=== PATIENT | female | born 1935 | race Caucasian/White ===

== ENCOUNTER 2022-12-02 08:02 | Outpatient (OUT) | payer MEDICARE, OTHER, SELFPAY ==
[2022-12-02 08:19] LABS: Basophils Percent Auto 0.4 % (0.2-2.0); Eosinophils Absolute Auto 0.1 10^3/uL (0.0-0.7); Eosinophils Percent Auto 1.6 % (0.9-7.0); Hematocrit 48.8 % (36.0-48.0); Hemoglobin 16.2 g/dL (12.0-16.0); Immature Granulocytes Abs Auto 0.03 10^3/uL (0.00-0.03); Immature Granulocytes Pct Auto 0.4 % (0.0-0.5); Lymphocytes Absolute Auto 2.5 10^3/uL (1.2-3.8); Lymphocytes Percent Auto 35.3 % (20.5-60.0); Mean Corpuscular HGB Conc 33.2 g/dL (29.9-35.2); Mean Corpuscular Hemoglobin 29.1 pg (26.7-34.0); Mean Corpuscular Volume 87.8 fL (81.0-99.0); Mean Platelet Volume 9.5 fL (9.5-13.5); Monocytes Absolute Auto 0.6 10^3/uL (0.3-0.8); Monocytes Percent Auto 9.1 % (1.7-12.0); Neutrophils Absolute Auto 3.7 10^3/uL (1.4-6.5); Neutrophils Percent Auto 53.2 % (43.0-75.0); Platelet Count 226 10^3/uL (150-450); Red Blood Count 5.56 10^6/uL (4.20-5.40); Red Cell Distribution Width 13.6 % (11.0-15.0); White Blood Count 6.9 10^3/uL (4.0-11.0)
[2022-12-02 09:00] LABS: Alanine Aminotransferase 23 U/L (14-59); Alkaline Phosphatase 105 U/L (46-116); Anion Gap 13.2; Aspartate Amino Transferase 22 U/L (15-37); BUN Creatinine Ratio 25.3; Bilirubin Total 0.6 mg/dL (0.2-1.0); Calcium 9.1 mg/dL (8.5-10.1); Carbon Dioxide 26.9 mmol/L (21.0-32.0); Chloride 101 mmol/L (98-107); Cholesterol 243 mg/dL (<=200); Estimated GFR (African America >60 (>=60); Estimated GFR (Non-African Ame >60 (>=60); Globulin 3.9 g/dL; Glucose 108 mg/dL (74-106); HDL Cholesterol 81 mg/dL (40-60); Potassium 4.1 mmol/L (3.5-5.1); Sodium 137 mmol/L (136-145); Thyroid Stimulating Hormone 1.869 uIU/mL (0.358-3.740); Total Protein 7.9 g/dL (6.4-8.2); Triglycerides 114 mg/dL (<=150); VLDL CHOLESTEROL 22.8 mg/dL
[2022-12-02 09:13] LABS: Free T4 1.16 ng/dL (0.76-1.46)
== END 2022-12-02 08:03 | disposition home or self-care (01) ==
LOC: LAB 08:03
PROVIDERS: PCP Family Medicine; Visit Provider Family Medicine
DX: I10 Essential (primary) hypertension (principal); E03.8 Other specified hypothyroidism
CPT/HCPCS: 36415; 80053; 80061; 84439; 84443; 85025

== ENCOUNTER 2023-12-11 09:59 | Outpatient (OUT) | payer MEDICARE, OTHER, SELFPAY ==
[2023-12-11 10:16] LABS: Basophils Percent Auto 0.6 % (0.2-2.0); Eosinophils Absolute Auto 0.1 10^3/uL (0.0-0.7); Eosinophils Percent Auto 1.5 % (0.9-7.0); Hematocrit 49.5 % (36.0-48.0); Immature Granulocytes Abs Auto 0.02 10^3/uL (0.00-0.03); Immature Granulocytes Pct Auto 0.3 % (0.0-0.5); Lymphocytes Absolute Auto 2.5 10^3/uL (1.2-3.8); Lymphocytes Percent Auto 34.4 % (20.5-60.0); Mean Corpuscular HGB Conc 32.3 g/dL (29.9-35.2); Mean Corpuscular Hemoglobin 29.3 pg (26.7-34.0); Mean Corpuscular Volume 90.5 fL (81.0-99.0); Mean Platelet Volume 9.6 fL (9.5-13.5); Monocytes Absolute Auto 0.6 10^3/uL (0.3-0.8); Monocytes Percent Auto 8.6 % (1.7-12.0); Neutrophils Absolute Auto 3.9 10^3/uL (1.4-6.5); Neutrophils Percent Auto 54.6 % (43.0-75.0); Platelet Count 234 10^3/uL (150-450); Red Blood Count 5.47 10^6/uL (4.20-5.40); Red Cell Distribution Width 13.6 % (11.0-15.0); White Blood Count 7.2 10^3/uL (4.0-11.0)
[2023-12-11 11:44] LABS: Free T4 1.23 ng/dL (0.76-1.46)
[2023-12-11 11:56] LABS: Alanine Aminotransferase 26 U/L (14-59); Albumin Globulin Ratio 1.1; Alkaline Phosphatase 103 U/L (46-116); Anion Gap 13.1; Aspartate Amino Transferase 23 U/L (15-37); BUN Creatinine Ratio 17.3; Bilirubin Total 0.9 mg/dL (0.2-1.0); Calcium 9.2 mg/dL (8.5-10.1); Carbon Dioxide 28.1 mmol/L (21.0-32.0); Chloride 102 mmol/L (98-107); Chol HDL Ratio 2.6; Cholesterol 251 mg/dL (<=200); Estimated GFR (African America >60 (>=60); Estimated GFR (Non-African Ame >60 (>=60); Globulin 3.8 g/dL; Glucose 104 mg/dL (74-106); HDL Cholesterol 96 mg/dL (40-60); Potassium 4.2 mmol/L (3.5-5.1); Sodium 139 mmol/L (136-145); Thyroid Stimulating Hormone 1.001 uIU/mL (0.358-3.740); Total Protein 7.8 g/dL (6.4-8.2); Triglycerides 91 mg/dL (<=150); VLDL CHOLESTEROL 18.2 mg/dL
[2023-12-15 16:17] LABS: Microalbumin Urine Random 1.5 mg/dL (<=30.0)
== END 2023-12-11 10:00 | disposition home or self-care (01) ==
LOC: LAB 10:01
PROVIDERS: PCP Family Medicine; Visit Provider Family Medicine
DX: E03.8 Other specified hypothyroidism (principal); I10 Essential (primary) hypertension
CPT/HCPCS: 36415; 80053; 80061; 82043; 84439; 84443; 85025

== ENCOUNTER 2024-12-23 09:30 | Outpatient (OUT) | payer MEDICARE, OTHER, SELFPAY ==
--- OUTSIDE RECORDS SUMMARY | 2024-12-23 09:46 | XMS_ITS | Patient Health Record ---
Author Organization [facility] Address [address] [place] [address] Care Team Providers Care Manager Audio Name Role Phone Justin Mendoza Unavailable [phone] Dee Dee Griffith M.D. Unavailable Unavailable Allergies No Known Allergies Reason For Referral No Information Medications Medication SIG (Take, Route, Fr equency, Duration) Notes Start Date End Date Status Losartan/Potassium A ctive levothyroxine Active Upneeq Active [place]oothe XP Active Tumeric Active [place] XL Active Social History Tobacco Use: Social History Observation Description Date Details (start date - stop date) Never Smoker NA - NA Smoking History Question Answer Notes Smoking Status NonSmoker Problems Problem Type SNOMED Code ICD Code Onset Dates Problem Status W/U Status Risk Notes Problem [id number] Finger mass, right (R22.31) Active confirmed Problem [id number] 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 Plan Of Treatment No Information Insurance Providers Payer Name Payer Address Payer Phone Subscriber Number Group Number Insured Name Patient Relationship to Insured Coverage Start Date Coverage End [place] [place] [phone] [id number] DAX ACRE Self - patient is the insured [place] [employer] [place] [address] [facility], [place] [id number] [phone] [id number] Self - patient is the insured Medical (General) History Medical History History ICD Code Hypothyroidism Yes High Blood Pressure: Yes Surgical History Surgery Date(Month/Year) Colonoscopy [phone] Carpal tunnel 2003 Ganglion cyst 2001 Hysterectomy 1982
--- OUTSIDE RECORDS SUMMARY | 2024-12-23 09:46 | XMS_ITS | Clinical Summary ---
Author Organization [facility] Address [address] [place] [address] Care Team Providers Care Cable Installer Repairer Helper Name Role Phone Dee Dee Griffith MD Primary Care Provider [phone] Allergies Active Allergy Reactions Criticality Noted Date Comments Salicylates GI Upset 04/20/2014 Medications Levothyroxine 50 mcg cap Take 50 mcg by mouth once daily. Active iv contrast (will be provided with radiology test) CT Chest W -Inject, intravenously, once for 1 dose.No IV access, insert saline lock prior to the beginning of sedation, infusion, injection of imaging exam. Discontinue saline lock post exam. If Pt. has a central line or IVAD, may access for administration according to line specific nursing protocol. Once exam is complete flush line and de-access according to line specific nursing protocol in the CT contrast administration guidelines link. 1 Each 0 Active erythromycin (ROMYCIN) 5 mg/gram (0.5 %) ophthalmic ointment Use in both eyes daily at bedtime. 3 Active losartan (COZAAR) 25 mg tablet Take 1 tablet by mouth every afternoon. 3 Active Active Problems Problem Noted Date Diagnosed Date Splenic artery aneurysm 04/20/2014 Family History Medical History Relation Comments Heart Brother 1 Lipids Brother 2 Stroke Father Heart Mother Heart Son Relation Status Comments Brother 1 Brother 2 Father Mother Son Social History Tobacco Use Types Packs/Day Years Used Date Smoking Tobacco: Never Smokeless Tobacco: Never Tobacco Cessation:Counseling Given: Not Answered Alcohol Use Standard Drinks/Week Comments No 0 (1 standard drink = 0.6 oz pur e alcohol) Area Deprivation Index Answer Date Wilmar rded National Score (1-100), ignacioe r number is lower risk 86 02/06/2023 State Score (1-10), lower number is lower risk 8 02/06/2023 Data from: https://www.neighborhoodatlas.medicine.[facility] . Last address used for calculation [address] 02/06/2023 Comments No Sex and Gender Information Value Date Recorded Sex Assigned at Not on file Legal Sex Female 11:39 AM EST Gender Identity Female 01/30/2023 12:28 PM EDT Sexual Orientation Not on file Occupation Industry Job Start Date Job End Date Not on file Not on file Not on file Not on file Last Filed Vital Signs Vital Sign Reading Time Taken Comments Blood Pressure 145/73 02/06/2023 11:08 AM EDT Pulse 72 02/06/2023 11:08 AM EDT Temperature 36.3 C (97.3 F) 02/06/2023 11:08 AM EDT Respiratory Rate 16 02/06/2023 11:08 AM EDT Oxygen Saturation 99% 02/06/2023 11:08 AM EDT Inhaled Oxygen Concentration - - Weight 63.7 kg (140 lb 8 oz) 02/06/2023 11:08 AM EDT Height 153.7 cm (5' 0.5 ) 02/06/2023 11:08 AM ED T Body Mass Index 26.99 02/06/2023 11:08 AM EDT Plan of Treatment Health Maintenance Due Date Last Done Comments Anxiety Screening 11/23/1953 Depression Screening 11/23/1955 DTaP,Tdap,Td Vaccine (1 - Tdap) 1956 Diabetes Screening 1982 Pneumococcal Vaccine: 50+ (1 of 1 - PCV) 11/23/1987 Shingrix Vaccine (1 of 2) 11/23/1987 Medicare Annual Wellness Visit 11/01/2002 Bone Density Screening 2002 RSV Vaccine (1 - 1-dose 75+ series) 2012 Advance Directive Discussion 05/04/2024 Influenza Vaccine (#1) [address] [place] [address] [employer] MEDICARE Care Teams Cable Installer Repairer Helper Relationship Specialty Start Date End Date Dee Dee Griffith MD [address] [place] [address] [place] [address] PCP - General Family Medicine 04/05/14
--- OUTSIDE RECORDS SUMMARY | 2024-12-23 09:46 | XMS_ITS | Clinical Summary ---
Author Organization [facility] Address [address] [place] [address] Care Team Providers Care Digital Printer Operator Name Role Phone Unavailable Primary Care Provider Unavailabl e Allergies Active Allergy Reactions Criticality Noted Date Comments Aspirin 12/25/2023 Medications levothyroxine (Tirosint) 50 MCG capsule Take 50 mcg by mouth in the morning. Active losartan (Cozaar) 25 MG tablet Take 25 mg by mouth Daily Active metroNIDAZOLE (Metrocream) 0.75 % creamIndications :Other rosacea Apply thin layer to face, once daily, 30 day supply 45 g 6 12/25/2023 Active Active Problems No known active problems Social History Tobacco Use Types Packs/Day Years Used Date Smoking Tobacco: Never Smokeless Tobacco: Never Tobacco Cessation:Counseling Given: Not Answered Comments Unknown Sex and Gender Information Value Date Recorded Sex Assigned at Not on file Legal Sex Female 11:16 PM EDT Gender Identity Not on file Sexual Orientation Not on file Plan of Treatment Upcoming Encounters Date Type Department Care Team (Late st Contact Info) Description 12/26/2024 10:30 AM EDT Office Visit [facility] [address] [place] [address] Kelly Melchor PA [address] [place] [address] Insurance MEDICARE [facility] [place] [address]
--- OUTSIDE RECORDS SUMMARY | 2024-12-23 09:46 | XMS_ITS | Clinical Summary ---
Author Organization [facility] Address [address] [address] Care Team Providers Care Carton Gluing Machine Operator Name Role Phone Unavailable Primary Care Provider Unavailabl e Social History Tobacco Use Types Packs/Day Years Used Date Smoking Tobacco: Never Assessed Comments Unknown Sex and Gender Information Value Date Recorded Sex Assigned at Not on file Legal Sex Female 10:50 PM EDT Gender Identity Not on file Sexual Orientation Not on file Plan of Treatment Not on file
--- OUTSIDE RECORDS SUMMARY | 2024-12-23 09:49 | XMS_ITS | CCD ---
Author Organization [facility] Care Team Providers Care Mechanical Engineering Teacher Name Role Phone JO, DR DEE DEE Blood Primary Care Unavailable MYRIAM CARBALLO Consulting Unavailable MARAH, DR ADY Murry Admitting Unavailable LAWRENCE, DR ADY Murry Attending Unavailable JO, DR DEE DEE Blood Admitting Unavailable OSORIO, DR DEE DEE Blood Attending Unavailable JO, DR DEE DEE Blood Consulting Unavailable JO, DR DEE DEE Blood Primary Care Unavailable MICHELLE, DR JUSTIN Momin Consulting Unavailable JO, DR DEE DEE Blood Admitting Unavailable JO, DR DEE DEE Blood Attending Unavailable JO, DR DEE DEE Blood Primary Care Unavailable JO, DR DEE DEE Blood Consulting Unavailable MARAH, DR ADY Murry Admitting Unavailable MARAH, DR ADY Murry Attending Unavailable JO, DR DEE DEE Blood Primary Care Unavailable MARAH, DR ADY Murry Consulting Unavailable MARAH, DR ADY Murry Consulting Unavailable MARAH, DR ADY Murry Admitting Unavailable MARAH, DR ADY Murry Attending Unavailable JO, DR DEE DEE Blood Referring Unavailable OSORIO, DR DEE DEE Blood Primary Care Unavailable MARAH, DR ADY Murry Admitting Unavailable JO, DR DEE DEE Blood Primary Care Unavailable MYRIAM CARBALLO Consulting Unavailable MARAH, DR ADY Murry Attending Unavailable Dee Dee Osorio Unavailable Dee Dee Osorio MD Primary Care Provider GENO GRIFFITH Attending Unavailable SONIA DUFF Referring Unavailable DEE DEE OSORIO Primary Care Unavailable DEE DEE OSORIO Primary Care Unavailable Trae Ruiz MD Attending UnavailTrae Carolina MD Attending Unavailab zacarias Unavailable Primary Care Provider UnavailKELLY Larsen Attending Unavailable KELLY BONILLA Attending Unavailable KELLY BONILLA Attending Unavailable Dee Dee Osorio MD Primary Care Provider [phone] Dee Dee Osorio MD Attending Provider Allergies Allergy Classification Reported Allergen(s) Allergy Type Date of Onset Reaction(s) Facility (1 source) Aspirin Drug Allergy 02-11-1990 [facility] Repository (2 sources) Aspirin Drug Allergy Unknown [employer] Other (5 sources) Salicylate product; Translations: [SALICYLATES] Drug Allergy 04-20-2014 GI Upset [facility] (8 sources) Aluminum aspirin Drug Allergy 12-25-2023 [facility] Medications Current Medications Medication Drug Class(es) Dates Sig (Normalized) Sig (Original) levothyroxine sodium 0.05 mg oral tablet (17 sources) l-Thyroxine Start: 12-21-2023 take 1 tablet by mouth once daily Levothyroxine 50 mcg tablet Active 0 .ROUTE .COMPLEX December 21, 2023 8:28am TAKE 1 TABLET BY MOUTH EVERY DAY Complies with drug therapy Start: 12-10-2023 End: 12-21-2023 take 1 tablet by mouth once daily Levothyroxine 50 mcg tablet Discontinued 1 TAB PO Daily December 10, 2023 12:00am December 21, 2023 8:28am FreeTextSig: TAKE 1 TABLET BY MOUTH EVERY DAY; Note: Source Status: Start; Refills: 3; Qty: 90 Tablet; Provider: Jo Funez ( ) Start: 12-10-2023 take 1 tablet by cih th once daily Levothyroxine Active 1 TAB PO Daily December 10, 2023 12:00am FreeTextSig: TAKE 1 TABLET BY MOUTH EVERY DAY; Note: Source Status: Start; Refills: 3; Qty: 90 Tablet; Provider: Jo Funez ( ) take 1 capsule by mo uth in the morning levothyroxine (Tirosint) 50 MCG capsule Take 50 mcg by mouth in the morning. Active take 1 tablet by chi th once daily Levothyroxine Sodium 50 MCG TAKE 1 TABLET BY MOUTH EVERY DAY for 90 Active Comment on above: Take 50 mcg by mouth once daily. losartan potassium 25 mg oral tablet (14 sources) Angiotensin 2 Receptor Donald Start: 05-02-2024 take 1 tablet by mouth once daily Losartan 25 mg tablet Active 0 .ROUTE .COMPLEX May 02, 2024 5:43pm TAKE 1 TABLET BY MOUTH EVERY DAY Complies with drug therapy Start: 2022 End: 05-02-2024 take 1 tablet by mouth once daily Losartan 25 mg tablet Discontinued 1 TAB PO Daily December 10, 2023 12:00am May 02, 2024 5:43pm FreeTextSig: TAKE 1 TABLET BY MOUTH EVERY DAY; Note: Source Status: Start; Refills: 3; Qty: 90 Tablet; Provider: Jo Funez ( ) Comment on above: Take 1 tablet by chi th every afternoon. metroNIDAZOLE 7.5 mg/ml topical cream (8 sources) Nitroimidazole Antimicrobial Start: 12-25-2023 metroNIDAZOLE (Metrocream) 0.75 % cream Indications: Other rosacea Apply thin layer to face, once daily, 30 day supply 45 g 6 12/25/2023 Active Completed/Discontinued Medications Medication Drug Class(es) Dates Sig (Normalized) Sig (Original) erythromycin 0.005 mg/mg ophthalmic ointment (1 source) Macrolide, Macrolide Antimicrobial Start: 12-30-2022 erythromycin (ROMYCIN) 5 mg/gram (0.5 %) ophthalmic ointment Use in both eyes daily at bedtime. 0 12/30/2022 Active Comment on above: Use in both eyes nestor ly at bedtime. iv contrast (will be provided with radiology test) (4 sources) Start: 01-04-2020 iv contrast (will be provided with radiology [...] contrast administration guidelines link. 1 Each 0 01/04/2020 Active Comment on above: CT Chest W -Inject, intravenously, once for [...] in the CT contrast administration guidelines link. Problems Active Problems Problem Classification Problem Date Documented Date Episodic/Chronic Aortic; peripheral; and visceral artery aneurysms (9 sources) Aneurysm of splenic artery; Translations: [Aneurysm of other specified arteries] Onset: 04-20-2014 12-24-2022 Chronic Essential hypertension (8 sources) Essential (primary) hypertension; Translations: [Essential hypertension] Onset: 11-26-2021 Chronic Neoplasms of unspecified nature or uncertain behavior (2 sources) Neoplastic disease; Translations: [Neoplasm of unspecified behavior of bone, soft tissue, and skin] 02-15-2024 Episodic Other circulatory disease (1 source) Vascular disorder; Translations: [Unspecified disorder of circulatory system] 12-24-2022 Episodic Other connective tissue disease (4 sources) Trochanteric bursitis, right hip; Translations: [TROCHANTERIC BURSITIS RIGHT HIP] Onset: 01-02-2022 Episodic Other connective tissue disease (1 source) Ganglion, right hand Episodic Other inflammatory condition of skin (2 sources) Rosacea; Translations: [Other rosacea] 12-25-2023 Chronic Other non-epithelial cancer of skin (2 sources) Intraepidermal squamous carcinoma of face; Translations: [Carcinoma in situ of skin of unspecified part of face] 04-19-2024 Episodic Other non-traumatic joint disorders (1 source) Pain in right hip; Translations: [PAIN IN RIGHT HIP] Onset: 01-10-2022 Episodic Other skin disorders (2 sources) Inflamed seborrheic keratosis; Translations: [Inflamed seborrheic keratosis] 04-19-2024 Episodic Spondylosis; intervertebral disc disorders; other back problems (1 source) Other spondylosis with radiculopathy, lumbar region; Translations: [OTH SPONDYLS RADICULOPATHY LUMB RGN] Onset: 04-08-2022 Chronic Spondylosis; intervertebral disc disorders; other back problems (13 sources) Intervertebral disc disorders with radiculopathy, lumbar region; Translations: [Radiculopathy, lumbar region] Onset: 12-17-2021 Episodic Thyroid disorders (8 sources) Hypothyroidism, unspecified; Translations: [Hypothyroidism] Onset: 11-26-2021 Chronic Unclassified (3 sources) LOW BACK PAIN, UNSPECIFIED; Translations: [LOW BACK PAIN, UNSPECIFIED] Onset: 12-04-2021 Past or Other Problems Problem Classification Problem Date Documented Da te Episodic/Chronic Other and unspecified benign neoplasm (2 sources) Melanocytic nevus of trunk; Translations: [Melanocytic nevi of trunk] 12-25-2023 Episodic Other and unspecified benign neoplasm (2 sources) Senile angioma; Translations: [Hemangioma of skin and subcutaneous tissue] 12-25-2023 Episodic Other connective tissue disease (4 sources) Other muscle spasm; Translations: [OTHER MUSCLE SPASM] Onset: 12-03-2021 Episodic Other connective tissue disease (1 source) Sarcopenia; Translations: [SARCOPENIA] Onset: 12-07-2021 Episodic Other non-traumatic joint disorders (1 source) Pain in left hip; Translations: [PAIN IN LEFT HIP] Onset: 12-04-2021 Episodic Other skin disorders (2 sources) Seborrheic keratosis; Translations: [Other seborrheic keratosis] 12-25-2023 Episodic Other skin disorders (2 sources) Actinic keratosis; Translations: [Actinic keratosis] 12-25-2023 Episodic Residual codes; unclassified (2 sources) Family history of malignant melanoma; Translations: [Family history of malignant neoplasm of other organs or systems] 12-25-2023 Episodic Unclassified (1 source) LOW BACK PAIN, UNSPECIFIED; Translations: [LOW BACK PAIN, UNSPECIFIED] Onset: 11-28-2021 Results Test Name Value Interpretation Reference Range Facility No Panel InformationOrdered By: Nohelia Rosado on 04-19-2024 [facility] No Panel Informationon 02-14 Type of biopsy: tangential Informed consent: discussed and consent obtained Informed consent comment: The risks and benefits of the biopsy were discussed. Risks include but are not limited to bleeding, infection, scarring, pain, and nerve damage. An opportunity to ask questions prior to the procedure was permitted and all questions were answered. Patient was prepped and draped in usual sterile fashion: area cleansed with alcohol. Anesthesia: the lesion was anesthetized in a standard fashion Anesthetic: 1% lidocaine w/ epinephrine 1-100,000 buffered w/ 8.4% NaHCO3 Instrument used: DermaBlade Hemostasis achieved with: electrodesiccation Outcome: patient tolerated procedure well Outcome comment: The specimen was placed in a prelabeled formalin container to be sent for pathology Post-procedure details: sterile dressing applied and wound care instructions given Post-procedure details comment: Emphasized need to contact clinic for any signs of infection, uncontrollable bleeding, or complications. Dressing type: bandage Additional details: Photo taken Amount of lidocaine used: 0.7 cc [facility] No Panel Informationon 12-24 [facility] CNOVon 02-06-2023 CNOV Office Visit (VASSMN ) DEBORA ARCE ([id number]) 1935 F Date Time Provider Department 02/06/23 11:45 AM GENO GRIFFITH During your visit today, we recorded the following information about you: Temperature Pulse Respiration Blood pressure 97.3 degrees 72/minute 16/minute 145/73 Weight Height 63.7 kg 1.537 m Geno Griffith MD 02/06/2023 12:12 PM Signed [facility] [place] DEPARTMENT OF VASCULAR SURGERY OUTPATIENT VISIT DATE February 06, 2023 OUTPATIENT VISIT TYPE CONSULTATION SERVICE DATE: 02/06/2023 SERVICE TIME: 11:15 AM PRIMARY CARE PHYSICIAN: Dee Dee Osorio MD REFERRING PROVIDER: Self-referred CHIEF COMPLAINT: Splenic artery aneurysm HISTORY OF PRESENT ILLNESS: Vascular consultation at the request of Dr. Sonia Duff. A copy of this consultation note will be provided to the requesting physician by way of shared Medical record or letter to requesting physician via [place] mail. Ms. Arce is a 87 year old female who is seen today for known splenic artery aneurysms. Patient is doing well and has no current complaints. Patient has had multiple prior CT scans with no evidence of any growth of her splenic artery aneurysms. She denies any abdominal pain, nausea, vomiting, diarrhea, or constipation. PAST MEDICAL HISTORY Diagnosis Date Aneurysm of renal artery (HCC) Cervical spondylosis Hypothyroidism Splenic artery aneurysm (HCC) PAST SURGICAL HISTORY Procedure Laterality Date BREAST BIOPSY CARPAL TUNNEL RIGHT WRIST PAST SURGICAL HISTORY OF R wrist ganglion cyst removal VAGINAL HYSTERECTOMY UTERUS 250 GM/< 1983 Hysterectomy, vaginal SOCIAL HISTORY: Social History Tobacco Use Smoking status: Never Smokeless tobacco: Never Substance Use Topics Alcohol use: No Drug use: No FAMILY HISTORY Problem Relation Age of Onset Heart Mother Heart Brother Heart Son Stroke Father Lipids Brother MEDICATIONS: erythromycin (ROMYCIN) 5 mg/gram (0.5 %) ophthalmic ointment Use in both eyes daily at bedtime. losartan (COZAAR) 25 mg tablet Take 1 tablet by mouth every afternoon. Levothyroxine 50 mcg cap Take 50 mcg by mouth once daily. iv contrast (will be provided with radiology [...] in the CT contrast administration guidelines link. ALLERGIES: ALLERGIES Allergen Reactions Aspirin [Salicylate* GI Upset REVIEW OF SYSTEM: Constitutional: No weight loss, malaise or fevers. HEENT: Negative for frequent or significant headaches, No changes in hearing or vision, no nose bleeds or other nasal problems Respiratory: Negative for cough, wheezing, or shortness of breath Cardiovascular: Negative for chest pain, leg swelling or palpitations, claudication Gatrointestinal: Negative for abdominal discomfort, blood in stools or black stools or change in bowel habits Genitourinary: No history of dysuria, frequency, or incontinence and No difficulty urination, nocturia >1 times per night or hematuria Musculoskeletal: Positive for generalized aches Endocrine: Negative for cold or heat intolerance, polyuria, polydipsia and goiter Hematology/Lymphatic: Negative for prolonged bleeding, bruising easily or swollen nodes Neurologic: No history or headaches, syncope, paralysis, seizures or tremors Integumentary: Negative for lesions, rash, and itching. PHYSICAL EXAM: VITALS: BP 145/73 Pulse 72 Temp (Src) 97.3 (Oral) Resp 16 Ht 5' .5 (1.54m) Wt 140 lb 8 oz (63.7kg) SpO2 99% BMI 26.98 kg/(m2). General: Alert and oriented, No acute distress, Healthy appearance Integumentary: Normal color, no rash, no lesions. HEENT: EOM, pupils equal, round and reactive. Cardiovascular: Normal S1 AND S2, no rubs, murmurs or gallops. No JVD., Pulse regular. Lungs: Normal breath sounds, no wheezes or crackles. Abdomen: Soft, non-tender, no rigidity. Extremities: No deformity, no edema or tenderness, no joint swelling or clubbing. Neurological: Normal cognition and motor skills. Vascular: Posterior Tibial Right: Normal - Left: Normal Dorsalis Pedal Right: Normal - Left: Normal Diagnostic tests reviewed for today's visit: Most recent imaging with CTA with two splenic aneurysms and no interval growth and size <2 cm IMPRESSION: Ms. Arce is a 87 year old female with known splenic artery aneurysms. PLAN and RECOMMENDATIONS: No urgent indication for any aneurysm repair Stability of the aneurysms for several years Extensive discussion with patient about s (more content not included)... [facility] CREATININE, BLOOD (POC)on Creatinine [Mass/Vol] 0.80 mg/dL 0.7 - 1.4 mg/dL [facility] eGFR (POCT) [facility] CTA ABD/PEL W IVCONon 2022 [facility] CTA ABD/PELV W IVCONon 02-06 CTA ABD/PELV W IVCON * * *Final Report* * * DATE OF EXAM: Feb 06 2023 10:54AM [facility] [place]BD/PELV W IVCON / PROCEDURE REASON: Splenic artery aneurysm (HCC) * * * * Physician Interpretation * * * * CT ANGIOGRAM OF THE ABDOMEN AND PELVIS HISTORY: History of splenic artery aneurysms and left renal artery aneurysm. Presenting for routine follow-up. TECHNIQUE: High-resolution contrast-enhanced helical CT of the abdomen and pelvis was performed, timed to the arterial phase. 3-D processing was performed by the physician on an independent work station, with MIP and volume-rendering techniques. Total of 100 ml of Omnipaque 350 was injected IV during the examination. The study was performed without oral contrast. The patient tolerated the injection without complications. Dose-Length Product (DLP): 580 mGy*cm. CT Dose Reduction Employed: Automated exposure control(AEC) and iterative recon RESULT: COMPARISON: CTA abdomen/pelvis 12/17/2019, 10/02/2016, 10/16/2015, 10/14/2014. VASCULAR FINDINGS: Images of the aorta demonstrate moderate atherosclerotic change without significant focal stenosis or aneurysm. Celiac artery demonstrates no significant focal stenosis. Again demonstrated is a 1.6 cm peripherally calcified, partially thrombosed splenic artery aneurysm along the vascular pedicle (5:170), which is unchanged in size and morphology from 10/14/2014. Additionally, there is a 1.0 cm peripherally calcified aneurysm in the splenic hilum (5:158), which is also unchanged since 10/14/2014. A 0.5 cm peripherally calcified rounded structure near the lateral hilum may also represent a additional tiny aneurysm (5:146), which is also unchanged from 10/14/2014. Superior mesenteric artery demonstrates no significant focal stenosis. Inferior mesenteric artery demonstrates no significant focal stenosis. There is a single right renal artery. Right renal artery demonstrates no significant focal stenosis. There is a single left renal artery. Left renal artery demonstrates no significant focal stenosis. 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 RIGHT LEG: Right common iliac artery demonstrates mild atherosclerotic change without significant focal stenosis. Right external iliac artery is patent with no significant stenosis. Right internal iliac artery demonstrates mild atherosclerotic change without significant focal stenosis. Right common femoral artery demonstrates minimal atherosclerotic change without significant focal stenosis. The visualized right profunda femoris artery is patent with no significant stenosis. The visualized right superficial femoral artery is patent with no significant stenosis. LEFT LEG: Left common iliac artery demonstrates mild atherosclerotic change without significant focal stenosis. Left external iliac artery is patent with no significant stenosis. Left internal iliac artery demonstrates mild atherosclerotic change without significant focal stenosis. Left common femoral artery demonstrates mild atherosclerotic change without significant focal stenosis. The visualized left profunda femoris artery is patent with no significant stenosis. The visualized left superficial femoral artery is patent with no significant stenosis. NONVASCULAR FINDINGS: Liver: No mass. Biliary: No bile duct dilation. Gallbladder is unremarkable. Spleen: Subcentimeter and punctate calcified granulomata. No splenomegaly. Pancreas: No mass or duct dilation. Adrenals:No mass. Kidneys: Bilateral parapelvic cysts and extrarenal pelvises. No mass. No hydronephrosis. GI tract: Small hiatal hernia. 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 No dilation or wall thickening. Normal appendix. Sigmoid diverticulosis without diverticulitis. Lymph nodes: No abdominal lymphadenopathy. Mesentery/Peritoneum: No ascites or mass. Retroperitoneum: No mass. Pelvis: No ascites or fluid collection. Bones/Soft Tissues: Ovoid calcified density in the right hip flexor musculature (5:524) with fatty atrophy of the right gluteal musculature, which may be posttraumatic. Grade 1 anterolisthesis of L3 on L4 and L4 on L5 with associated intervertebral disc height loss, slightly progressed from 12/17/2019. Lower thorax: Calcified subcarinal and paraesophageal lymph nodes likely reflect sequelae of remote granulomatous process. There are mild coronary artery calcifications, although the exam is not optimized for coronary artery assessment. Unit Aide (topogram) images: No additional findings. IMPRESSION: No significant interval change of a 1.6 cm peripherally calcified, partially thrombosed splenic artery aneurysm and a 1.0 cm peripherally calcified distal splenic artery aneurysm since 10/14/2014. No continued follow-up is recommended. 1.0 cm saccular aneurysm of th (more content not included)... [facility] HISTORY PHYSICALon HISTORY PHYSICAL HNO ID: [id number] Author: Geno Griffith MD Service: ? Author Type: Physician Type: HANDP Filed: 02/06/2023 12:12 PM Note Text: [facility] [place] DEPARTMENT OF VASCULAR SURGERY OUTPATIENT VISIT DATE February 06, 2023 OUTPATIENT VISIT TYPE CONSULTATION SERVICE DATE: 02/06/2023 SERVICE TIME: 11:15 AM PRIMARY CARE PHYSICIAN: Dee Dee Osorio MD REFERRING PROVIDER: Self-referred CHIEF COMPLAINT: Splenic artery aneurysm HISTORY OF PRESENT ILLNESS: Vascular consultation at the request of Dr. Sonia Duff. A copy of this consultation note will be provided to the requesting physician by way of shared Medical record or letter to requesting physician via [place] mail. Ms. Arce is a 87 year old female who is seen today for known splenic artery aneurysms. Patient is doing well and has no current complaints. Patient has had multiple prior CT scans with no evidence of any growth of her splenic artery aneurysms. She denies any abdominal pain, nausea, vomiting, diarrhea, or constipation. PAST MEDICAL HISTORY Diagnosis Date Aneurysm of renal artery (HCC) Cervical spondylosis Hypothyroidism Splenic artery aneurysm (HCC) PAST SURGICAL HISTORY Procedure Laterality Date BREAST BIOPSY CARPAL TUNNEL RIGHT WRIST PAST SURGICAL HISTORY OF R wrist ganglion cyst removal VAGINAL HYSTERECTOMY UTERUS 250 GM/< 1983 Hysterectomy, vaginal SOCIAL HISTORY: Social History Tobacco Use Smoking status: Never Smokeless tobacco: Never Substance Use Topics Alcohol use: No Drug use: No FAMILY HISTORY Problem Relation Age of Onset Heart Mother Heart Brother Heart Son Stroke Father Lipids Brother MEDICATIONS: erythromycin (ROMYCIN) 5 mg/gram (0.5 %) ophthalmic ointment Use in both eyes daily at bedtime. losartan (COZAAR) 25 mg tablet Take 1 tablet by mouth every afternoon. Levothyroxine 50 mcg cap Take 50 mcg by mouth once daily. iv contrast (will be provided with radiology [...] in the CT contrast administration guidelines link. ALLERGIES: ALLERGIES Allergen Reactions Aspirin [Salicylate* GI Upset REVIEW OF SYSTEM: Constitutional: No weight loss, malaise or fevers. HEENT: Negative for frequent or significant headaches, No changes in hearing or vision, no nose bleeds or other nasal problems Respiratory: Negative for cough, wheezing, or shortness of breath Cardiovascular: Negative for chest pain, leg swelling or palpitations, claudication Gatrointestinal: Negative for abdominal discomfort, blood in stools or black stools or change in bowel habits Genitourinary: No history of dysuria, frequency, or incontinence and No difficulty urination, nocturia >1 times per night or hematuria Musculoskeletal: Positive for generalized aches Endocrine: Negative for cold or heat intolerance, polyuria, polydipsia and goiter Hematology/Lymphatic: Negative for prolonged bleeding, bruising easily or swollen nodes Neurologic: No history or headaches, syncope, paralysis, seizures or tremors Integumentary: Negative for lesions, rash, and itching. PHYSICAL EXAM: VITALS: BP 145/73 Pulse 72 Temp (Src) 97.3 (Oral) Resp 16 Ht 5' .5 (1.54m) Wt 140 lb 8 oz (63.7kg) SpO2 99% BMI 26.98 kg/(m2). General: Alert and oriented, No acute distress, Healthy appearance Integumentary: Normal color, no rash, no lesions. HEENT: EOM, pupils equal, round and reactive. Cardiovascular: Normal S1 AND S2, no rubs, murmurs or gallops. No JVD., Pulse regular. Lungs: Normal breath sounds, no wheezes or crackles. Abdomen: Soft, non-tender, no rigidity. Extremities: No deformity, no edema or tenderness, no joint swelling or clubbing. Neurological: Normal cognition and motor skills. Vascular: Posterior Tibial Right: Normal - Left: Normal Dorsalis Pedal Right: Normal - Left: Normal Diagnostic tests reviewed for today's visit: Most recent imaging with CTA with two splenic aneurysms and no interval growth and size <2 cm IMPRESSION: Ms. Arce is a 87 year old female with known splenic artery aneurysms. PLAN and RECOMMENDATIONS: No urgent indication for any aneurysm repair Stability of the aneurysms for several years Extensive discussion with patient about surveillance and a decision was made based on size and age to discontinue any further imaging surveillance Continue optimal medical therapy Follow-up as needed SIGNATURE: Geno Griffith MD PATIENT NAME: Debora Arce DATE: February 06, 2023 TIME: 11:15 AM [facility] XR LSPINE MIN 4 VIEWSon 11-02 XR LSPINE MIN 4 VIEWS EXAMINATION: XR LS PINE MIN 4 VIEWS HISTORY: Low back pain , bilateral hip pain COMPARISON: CTA abdomen pelvis 12/17/2019 FINDINGS: BONES: Mild left convex curvature of lumbar spine. Mild grade 1 anterolisthesis of L3 on 4, and L4 on 5. Moderate degenerative facet arthropathy L3-L4 through L5-S1. DISC SPACES: Marked narrowing L3-L4, L4-L5, L5-S1. PARASPINOUS: Marked atherosclerotic disease of aorta without aneurysm. Rim calcified splenic artery aneurysms. OTHER: Negative. IMPRESSION: 1. Multilevel marked degenerative disc disease and moderate degenerative facet arthropathy of the lumbar spine. 2. Grossly stable rim calcified splenic artery aneurysms. Electronically authenticated by: JUSTIN MARTINEZ Date: 2021-11-29 07:56 Normal [facility] CBC AUTO DIFFon 11-21-2021 BASO # 0.1 103/ul Normal 0.0-0.1 [facility] Comment on above: Performed By: #### F T4 #### [facility] [address] [address] [address] Tyrese Tavarez Basophils/100 WBC (Bld) 0.9 % Normal 0.2-2.0 [facility] Comment on above: Performed By: #### F T4 #### [facility] [address] [place] [address] Dr. Tyrese Tavarez EO # 0.2 103/ul Normal 0.0-0.7 [facility] Comment on above: Performed By: #### F T4 #### [facility] [address] [place] [address] Dr. Tyrese Tavarez Eosinophils/100 WBC (Bld) 2.4 % Normal 0.9-7.0 [facility] Comment on above: Performed By: #### F T4 #### [facility] [address] [place] [address] Dr. Tyrese Tavarez Erythrocyte distribution width (RBC) [Ratio] 13.7 % Normal 11.0-15.0 [facility] Comment on above: Performed By: #### F T4 #### [facility] [address] [place] [address] Dr. Tyrese Tavarez Hematocrit (Bld) [Volume fraction] 48.6 % Critically high 36.0-48.0 [facility] Comment on above: Performed By: #### F T4 #### [facility] [address] [place] [address] Dr. Tyrese Tavarez Hemoglobin (Bld) [Mass/Vol] 15.9 g/dL Normal 12.0-16.0 [facility] Comment on above: Performed By: #### F T4 #### [facility] [address] [place] [address] Dr. Tyrese Tavarez IG # 0.01 10e3/ul Normal 0.00-0.03 [facility] Comment on above: Performed By: #### F T4 #### [facility] [address] [place] [address] Dr. Tyrese Tavarez IG % 0.1 % Normal 0.0-0.5 [facility] Comment on above: Performed By: #### F T4 #### [facility] [address] [place] [address] Dr. Tyrese Tavarez LYMPH # 2.3 103/ul Normal 1.2-3.8 [facility] Comment on above: Performed By: #### F T4 #### [facility] [address] [place] [address] Dr. Tyrese Tavarez Lymphocytes/100 WBC (Bld) 32.5 % Normal 20.5-60.0 [facility] Comment on above: Performed By: #### F T4 #### [facility] [address] [place] [address] Dr. Tyrese Tavarez MANUAL DIFF REQ NO Normal [facility] Comment on above: Performed By: #### F T4 #### [facility] [address] [place] [address] Dr. Tyrese Tavarez MCH (RBC) [Entitic mass] 29.2 pg Normal 26.7-34.0 [facility] Comment on above: Performed By: #### F T4 #### [facility] [address] [place] [address] Dr. Tyrese Tavarez MCHC (RBC) [Mass/Vol] 32.7 g/dL Normal 29.9-35.2 [facility] Comment on above: Performed By: #### F T4 #### [facility] [address] [place] [address] Dr. Tyrese Tavarez MCV (RBC) [Entitic vol] 89.3 fL Normal 81.0-99.0 [facility] Comment on above: Performed By: #### F T4 #### [facility] [address] [place] [address] Dr. Tyrese Tavarez MONO # 0.7 103/ul Normal 0.3-0.8 [facility] Comment on above: Performed By: #### F T4 #### [facility] [address] [place] [address] Dr. Tyrese Tavarez Monocytes/100 WBC (Bld) 9.4 % Normal 1.7-12.0 [facility] Comment on above: Performed By: #### F T4 #### [facility] [address] [place] [address] Dr. Tyrese Tavarez NEUT # 3.9 103/ul Normal 1.4-6.5 [facility] Comment on above: Performed By: #### F T4 #### [facility] [address] [address] [address] Tyrese Tavarez Neutrophils/100 WBC (Bld) 54.7 % Normal 43.0-75.0 [facility] Comment on above: Performed By: #### F T4 #### [facility] [address] [address] [address] Tyrese Tavarez Platelet mean volume (Bld) [Entitic vol] 9.1 fL Critically low 9.5-13.5 [facility] Comment on above: Performed By: #### F T4 #### [facility] [address] [address] [address] Tyrese Tavarez PLT 240 103/ul Normal 150-450 [facility] Comment on above: Performed By: #### F T4 #### [facility] [address] [place] [address] Dr. Tyrese Tavarez RBC 5.44 106/ul Critically high 4.20-5.40 [facility] Comment on above: Performed By: #### F T4 #### [facility] [address] [place] [address] Dr. Tyrese Tavarez WBC 7.0 103/ul Normal 4.0-11.0 [facility] Comment on above: Performed By: #### F T4 #### [facility] [address] [place] [address] Dr. Tyrese Tavarez FREE T4on 11-21-2021 Free T4 [Mass/Vol] 1.17 ng/dL Normal 0.76-1.46 [facility] Comment on above: Performed By: #### F T4 #### [facility] [address] [place] [address] Dr. Tyrese Tavarez LIPID PROFILEon 11-21-2021 CHOL-HDL RATIO NORM SEE BELOW Normal [facility] Comment on above: Result Comment: 3.3 - 4.4 LOW RISK 4.4 - 7.1 AVERAGE RISK 7.1 - 11.0 MODERATE RISK >11.0 HIGH RISK Performed By: #### C MP, LIPID, TSH #### [facility] [address] [place] [address] Dr. Tyrese Tavarez Cholesterol [Mass/Vol] 251 mg/dL Critically high <=200 [facility] Comment on above: Performed By: #### C MP, LIPID, TSH #### [facility] [address] [address] [address] Tyrese Tavarez Cholesterol in HDL [Mass/Vol] 85 mg/dL Critically high 40-60 [facility] Comment on above: Performed By: #### C MP, LIPID, TSH #### [facility] [address] [address] [address] Tyrese Tavarez Cholesterol in LDL [Mass/Vol] 142.4 mg/dL Normal [facility] Comment on above: Performed By: #### C MP, LIPID, TSH #### [facility] [address] [address] [address] Tyrese Tavarez Cholesterol.total/Chol esterol in HDL [Mass ratio] 3.0 {ratio} Normal [facility] Comment on above: Performed By: #### C MP, LIPID, TSH #### [facility] [address] [address] [address] Tyrese Tavarez HDL NORMAL > or = 60 mg/dl - LO W CARDIOVASCULAR RISK <40 mg/dl - HIGH CARDIOVASCULAR RISK Normal [facility] Comment on above: Performed By: #### C MP, LIPID, TSH #### [facility] [address] [address] [address] Tyrese Tavarez LDL CALC NORMAL SEE BELOW Normal [facility] Comment on above: Result Comment: <100 mg/dl OPTIMAL 100 - 129 mg/dl NEAR OR ABOVE OPTIMAL 130 - 159 mg/dl BORDERLINE HIGH 160 - 189 mg/dl HIGH >190 mg/dl VERY HIGH Performed By: #### C MP, LIPID, TSH #### [facility] [address] [address] [address] Tyrese Tavarez Triglyceride [Mass/Vol] 118 mg/dL Normal <=150 [facility] Comment on above: Performed By: #### C MP, LIPID, TSH #### [facility] [address] [address] [address] Tyrese Tavarez VLDL CALC 23.6 mg/dL Normal [facility] Comment on above: Performed By: #### C MP, LIPID, TSH #### [facility] [address] [place] [address] Dr. Tyrese Tavarez MICROALBUMIN, RAND URon - mALB 1.6 mg/L Normal <=30.0 [facility] Comment on above: Performed By: #### F T4 #### [facility] [address] [place] [address] Dr. Tyrese Tavarez PROF 14(COMP METB)on 022 Albumin [Mass/Vol] 4.1 g/dL Normal 3.4-5.0 [facility] Comment on above: Performed By: #### C MP, LIPID, TSH #### [facility] [address] [place] [address] Dr. Tyrese Tavarez Albumin/Globulin [Mass ratio] 1.1 {ratio} Normal [facility] Comment on above: Performed By: #### C MP, LIPID, TSH #### [facility] [address] [place] [address] Dr. Tyrese Tavarez ALP [Catalytic activity/Vol] 95 U/L Normal 46-116 [facility] Comment on above: Performed By: #### C MP, LIPID, TSH #### [facility] [address] [place] [address] Dr. Tyrese Tavarez ALT [Catalytic activity/Vol] 19 U/L Normal 14-59 [facility] Comment on above: Performed By: #### C MP, LIPID, TSH #### [facility] [address] [place] [address] Dr. Tyrese Tavarez Anion gap [Moles/Vol] 12.8 mmol/L Normal [facility] Comment on above: Performed By: #### C MP, LIPID, TSH #### [facility] [address] [place] [address] Dr. Tyrese Tavarez AST [Catalytic activity/Vol] 19 U/L Normal 15-37 [facility] Comment on above: Performed By: #### C MP, LIPID, TSH #### [facility] [address] [place] [address] Dr. Tyrese Tavarez Bilirubin [Mass/Vol] 0.6 mg/dL Normal 0.2-1.0 [facility] Comment on above: Performed By: #### C MP, LIPID, TSH #### [facility] [address] [address] [address] Tyrese Tavarez Calcium [Mass/Vol] 9.0 mg/dL Normal 8.5-10.1 [facility] Comment on above: Performed By: #### C MP, LIPID, TSH #### [facility] [address] [address] [address] Tyrese Tavarez Chloride [Moles/Vol] 103 mmol/L Normal 98-107 [facility] Comment on above: Performed By: #### C MP, LIPID, TSH #### [facility] [address] [address] [address] Tyrese Tavarez CO2 [Moles/Vol] 27.5 mmol/L Normal 21.0-32.0 [facility] Comment on above: Performed By: #### C MP, LIPID, TSH #### [facility] [address] [address] [address] Tyrese Tavarez Creatinine [Mass/Vol] 0.86 mg/dL Normal 0.55-1.02 [facility] Comment on above: Performed By: #### C MP, LIPID, TSH #### [facility] [address] [address] [address] Tyrese Tavarez EGFR-AF CITIZEN [place] >60 Normal >=60 [facility] Comment on above: Performed By: #### C MP, LIPID, TSH #### [facility] [address] [address] [address] Tyrese Tavarez EGFR-NON AF CITIZEN OF [place] >60 Normal >=60 [facility] Comment on above: Performed By: #### C MP, LIPID, TSH #### [facility] [address] [address] [address] Tyrese Tavarez Globulin (S) [Mass/Vol] 3.7 g/dL Normal [facility] Comment on above: Performed By: #### C MP, LIPID, TSH #### [facility] [address] [address] [address] Tyrese Tavarez Glucose [Mass/Vol] 105 mg/dL Normal 74-106 [facility] Comment on above: Performed By: #### C MP, LIPID, TSH #### [facility] [address] [place] [address] Dr. Tyrese Tavarez Potassium [Moles/Vol] 4.3 mmol/L Normal 3.5-5.1 [facility] Comment on above: Performed By: #### C MP, LIPID, TSH #### [facility] [address] [place] [address] Dr. Tyrese Tavarez Protein [Mass/Vol] 7.8 g/dL Normal 6.4-8.2 [facility] Comment on above: Performed By: #### C MP, LIPID, TSH #### [facility] [address] [place] [address] Dr. Tyrese Tavarez Sodium [Moles/Vol] 139 mmol/L Normal 136-145 [facility] Comment on above: Performed By: #### C MP, LIPID, TSH #### [facility] [address] [place] [address] Dr. Tyrese Tavarez Urea nitrogen [Mass/Vol] 18.0 mg/dL Normal 7.0-18.0 [facility] Comment on above: Performed By: #### C MP, LIPID, TSH #### [facility] [address] [place] [address] Dr. Tyrese Tavarez Urea nitrogen/Creatinine [Mass ratio] 20.9 mg/mg Normal [facility] Comment on above: Performed By: #### C MP, LIPID, TSH #### [facility] [address] [place] [address] Dr. Tyrese Tavarez TSHon 11-21-2021 TSH 1.613 uIU/mL Normal 0.358-3.740 [facility] Comment on above: Performed By: #### F T4 #### [facility] [address] [place] [address] Dr. Tyrese Tavarez Vital Signs Date Time Vital Sign Value Performing Clinician Facility 12-23-2024 08:55-0400 Body height 152.4 cm Dee Dee Osorio MD Work Phone: [facility] 12-23-2024 08:55-0400 Body mass index (BMI) [Ratio] 27.3 kg/m2 Dee Dee Osorio MD Work Phone: [facility] 12-23-2024 08:55-0400 Body weight 63.5 kg Dee Dee Osorio MD Work Phone: [facility] 12-23-2024 08:55-0400 Diastolic blood pressure 80 mm[Hg] Dee Dee Osorio MD Work Phone: [facility] 12-23-2024 08:55-0400 Heart rate 76 /min Dee Dee Osorio MD Work Phone: [facility] 12-23-2024 08:55-0400 Systolic blood pressure 135 mm[Hg] Dee Dee Osorio MD Work Phone: [facility] 12-11-2023 08:56-0400 Body height 151.13 cm [facility] 12-11-2023 08:56-0400 Body mass index (BMI) [Ratio] 28 kg/m2 [facility] 12-11-2023 08:56-0400 Body weight 63.95 kg [facility] 12-11-2023 08:56-0400 Diastolic blood pressure 76 mm[Hg] [facility] 12-11-2023 08:56-0400 Heart rate 75 /min [facility] 12-11-2023 08:56-0400 Systolic blood pressure 164 mm[Hg] [facility] 02-06-2023 11:08-0400 Body height 153.7 cm Geno Griffith MD Work Phone: [facility] 02-06-2023 11:08-0400 Body temperature 97.3 [degF] Geno Griffith MD Work Phone: [facility] 02-06-2023 11:08-0400 Body weight 63.73 kg Geno Griffith MD Work Phone: [facility] 02-06-2023 11:08-0400 Diastolic blood pressure 73 mm[Hg] Geno Griffith MD Work Phone: [facility] 02-06-2023 11:08-0400 Heart rate 72 /min Geno Griffith MD Work Phone: [facility] 02-06-2023 11:08-0400 Respiratory rate 16 /min Geno Griffith MD Work Phone: [facility] 02-06-2023 11:08-0400 SaO2% (BldA) [Mass fraction] 99 % Geno Griffith MD Work Phone: [facility] 02-06-2023 11:08-0400 Systolic blood pressure 145 mm[Hg] Geno Griffith MD Work Phone: [facility] 12-08-2022 09:00-0400 Body height 152.4 cm Dee Dee Osorio Other [facility] Other 12-08-2022 09:00-0400 Body mass index (BMI) [Ratio] 28.12 kg/m2 Dee Dee Osorio Other [facility] Other 12-08-2022 09:00-0400 Body weight 65.32 kg Dee Dee Osorio Other [facility] Other 12-08-2022 09:00-0400 Diastolic blood pressure 70 mm[Hg] Dee Dee Osorio Other [employer] Other 12-08-2022 09:00-0400 Systolic blood pressure 142 mm[Hg] Dee Dee Osorio Other [employer] Other Encounters Encounter Date Encounter Type Care Provider Facility Start: 12-23-2024 End: 12-23-2024 ambulatory Dee Dee Osorio MD Work Phone: [facility] Work Phone: Start: 12-23-2024 End: 12-23-2024 Patient encounter procedure Dee Dee Osorio MD -[facility] Work Phone: Start: 04-19-2024 End: 04-19-2024 Bamboo flowsheet Kelly Bonilla PA Work Phone: [facility] Start: 04-19-2024 End: 04-19-2024 Bamboo flowsheet Kellygretel Bonilla PA Work Phone: [facility] Start: 04-19-2024 End: 04-19-2024 Office outpatient visit 10 minutes Kelly Bonilla PA Work Phone: [facility] Comment on above: 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); Inflamed seborrheic keratosis Start: 04-19-2024 End: 04-19-2024 ambulatory KELLY L IRENE Not Available Start: 02-15-2024 End: 02-15-2024 Bamboo flowsheet Kelly Yobani LarkinIrene PA Work Phone: [facility] Start: 02-15-2024 End: 02-15-2024 Bamboo flowsheet Kelly L Irene PA Work Phone: [facility] Start: 02-15-2024 End: 02-15-2024 Patient encounter procedure Kelly Bonilla PA Work Phone: [facility] Comment on above: Neoplasm of unspecif ied behavior of bone, soft tissue, and skin (Primary Dx) Start: 02-15-2024 End: 02-15-2024 ambulatory KELLY L IRENE Not Available Start: 12-25-2023 End: 12-25-2023 Bamboo flowsheet Kelly L Irene PA Work Phone: [facility] Start: 12-25-2023 End: 12-25-2023 Bamboo flowsheet Kelly L Irene PA Work Phone: [facility] Start: 12-25-2023 End: 12-25-2023 Office outpatient new 45 minutes Kelly Bonilla PA Work Phone: [facility] Comment on above: Melanocytic nevus of trunk (Primary Dx); Seborrheic keratosis; Actinic keratosis; Álvarez angioma; Other rosacea; Family history of melanoma Start: 12-25-2023 End: 12-25-2023 ambulatory KELLY BONILLA Not Available Start: 12-11-2023 Patient encounter procedure Dee Dee Osorio MD Work Phone: [facility] Start: 12-11-2023 End: 12-11-2023 ambulatory [facility] Work Phone: Start: 12-11-2023 End: 12-11-2023 Patient encounter procedure [facility] Work Phone: Start: 08-19-2023 End: 08-20-2023 ambulatory Trae Ruiz MD Facility:[facility] Start: 07-22-2023 End: 07-23-2023 ambulatory Trae Ruiz MD Facility:[facility] Start: 02-06-2023 End: 02-06-2023 ambulatory GENO GRIFFITH Facility:[facility] Start: 02-06-2023 End: 02-06-2023 Office outpatient new 30 minutes Geno Griffith MD Work Phone: [facility] Comment on above: Splenic artery aneur ysm (HCC) Start: 02-06-2023 End: 02-06-2023 Subsequent hospital visit by physician [facility] F30 (I-Stat) Work Phone: Radiology Start: 01-01-2023 Orders Only Geno Griffith MD Work Phone: [facility] Comment on above: Splenic artery aneur ysm (HCC) (Primary Dx) Start: 12-24-2022 Orders Only Sonia Paz Work Phone: [facility] Comment on above: Splenic artery aneur ysm (HCC) (Primary Dx); Vasculopathy Start: 12-17-2022 End: 12-17-2022 ambulatory Dee Dee Osorio Other [employer] Other Start: 12-17-2022 Telephone encounter Dee Dee Osorio [facility] Start: 12-08-2022 End: 12-08-2022 ambulatory Dee Dee Osorio Other [employer] Other Start: 12-08-2022 Patient encounter procedure Dee Dee Osorio [facility] Start: 04-03-2022 End: 04-04-[address] DEE DEE OSORIO Facility:[facility] Start: 01-02-2022 End: 01-03-[address] ADY LAWRENCE Facility:[facility] Start: 12-17-2021 End: 12-17-[address] ADY LAWRENCE Facility:[facility] Start: 12-03-2021 End: 12-04-[address] ADY LAWRENCE Facility:[facility] Start: 11-28-2021 End: 11-29-[address] JUSTIN MARTINEZ Facility:[facility] Start: 11-26-2021 Encounter for genera l adult medical examination without abnormal findings DR DEE DEE OSORIO [facility] Start: 11-21-2021 End: [address] DEE DEE OSORIO Facility:[facility] Start: 11-21-2021 End: 2021 Encounter for general adult medical examination without abnormal findings DR DEE DEE OSORIO Facility:[facility] Procedures Date Procedure Procedure Detail Performing Clinician Start: 04-19-2024 CRYOTHERAPY SKIN LESION Kelly L Irene PA Work Phone: Start: 02-15-2024 SKIN / NAIL BIOPSY Martha on Yobani Bonilla PA Work Phone: Start: 12-25-2023 CRYOTHERAPY SKIN LESION Kelly Hilton Irene PA Work Phone: Start: 02-06-2023 Ct angio abd&plvis c ntrst mtrl w/wo cntrst img Geno Griffith MD Work Phone: Start: 02-06-2023 Creatinine [Mass/vol ume] in Serum or Plasma [facility] Provider Plan of Treatment Date Care Activity Detail Author Start: 12-26-2024 End: 12-26-2024 Patient encounter procedure 12/26/2024 10:30 AM EDT Office Visit [facility] [address] [place] [address] Kelly Bonilla PA [address] [place] [id number] [facility] Start: 04-19-2024 End: 04-19-2024 Patient encounter procedure 04/19/2024 12:30 PM EST Office Visit [facility] [address] [place] [address] Kelly Bonilla PA [address] [place] [address] Arrived [facility] Comment on above: Arrived Start: 02-15-2024 End: 02-15-2024 Patient encounter procedure [facility] Comment on above: Arrived Start: 12-25-2023 End: 12-25-2023 Patient encounter procedure 12/25/2023 10:20 AM EDT Office Visit [facility] [address] [place] [address] Kelly Bonilla PA [address] [place] [address] Arrived [facility] Comment on above: Arrived Start: 01-02-2023 Influenza vaccination [facility] Start: 05-04-2022 ADVANCE DIRECTIVE DISCUSSION ADVANCE DIRECTIVE DISCUSSION [facility] Start: 05-04-2022 DEPRESSION ASSESSMENT DEPRESSION ASSESSMENT [facility] Start: 2002 BONE DENSITY BONE DENSITY [facility] Start: 2002 Bone Density Screening Bone Density Scre[facility] Start: 2002 Pneumococcal Vaccine: 65+ (1 - PCV) Pneumococcal Vaccine: 65+ (1 - PCV) [facility] Start: 2002 PNEUMOCOCCAL: 65+ (1 - PCV) PNEUMOCOCCAL: 65+ (1 - PCV) [facility] Start: 11-23-1987 SHINGRIX VACCINE (1 of 2) SHINGRIX VACCINE (1 of 2) [facility] Start: 1982 DIABETES SCREEN DIABETES SCREEN [facility] Start: 1982 Diabetes Screening Diabetes Screening [facility] Start: 1956 Urine microalbumin profile [facility] Start: 05-25-1938 COVID-19 VACCINE (#1) COVID-19 VACCINE (#1) [facility] Comprehensive metabo lic 1999 panel - Serum or Plasma [facility] Comprehensive metabo lic 1999 panel - Serum or Plasma [facility] End: 01-23-2024 Ct angio abd&plvis cntrst mtrl w/wo cntrst img CTA ABD/PEL WO/W IVCON Radiology Routine Splenic artery aneurysm (HCC) Vasculopathy 1 Occurrences starting 12/24/2022 until 01/23/2024 [facility] Work Phone: Comment on above: 1 Occurrences starting 12/24/2022 until 01/23/2024 End: 01-31-2024 Ct angio abd&plvis cntrst mtrl w/wo cntrst img CTA ABD/PEL WO/W IVCON Radiology Routine Splenic artery aneurysm (HCC) 1 Occurrences starting 01/01/2023 until 01/31/2024 [facility] Work Phone: Comment on above: 1 Occurrences starting 01/01/2023 until 01/31/2024 Dermatopathology exam Dermatopat hology exam Pathology and Cytology Timed Neoplasm of unspecified behavior of bone, soft tissue, and skin Release Upon Ordering for 1 Occurrences starting 02/15/2024 [facility] Work Phone: Comment on above: Release Upon Ordering for 1 Occurrences starting 02/15/2024 [facility] Payers Date Payer Category Payer Private Health Insurance [facility] [place] [id number] 2014 Unknown [id number] 2014 Unknown [id number] 2002 Medicare [id number] 1959 Medicare [id number] 1959 Unknown [id number] 1937 Unknown [id number] .593 1937 Unknown [id number] 2.16.840.1.391973.3.579.2 .593 1937 Unknown [id number] .593 1937 Unknown [id number] 2.16.840.1.630891.3.579.2 .593 1937 Unknown [id number] 2.16.840.1.504579.3.579.2 .593 1937 Unknown [id number] 2.16.840.1.982176.3.579.2 .593 1937 Unknown [id number] 2.16.840.1.816074.3.579.2 .196 1937 Unknown [id number] 2.16.840.1.748794.3.579.2 .196 1937 Unknown [id number] 2.16.840.1.350346.3.579.2 .1259 1937 Unknown [id number] .1259 1937 Unknown [id number] .1259 Unknown [facility] [id number] Social History Date Type Detail Facility Start: 01-05-2020 End: 12-25-2023 Sex Assigned At [facility] Gabriel Ti Knight Other Start: 01-05-2020 End: 12-08-2022 Tobacco smoking status NHIS Never smoked tobacco [facility] Start: 01-05-2020 End: 12-25-2023 Tobacco use and exposure Smokeless tobacco non-user [facility] Start: 01-05-2020 End: 02-06-2023 Alcohol intake Current non-drinker of alcohol (finding) [facility] Start: 01-05-2020 End: 12-25-2023 History of Social function [facility] National Score (1-100), lower number is lower risk Not on file [facility] Start: 1935 Sex Assigned At Not on file [facility] Start: 01-30-2023 Gender identity Identifies as female gender (finding) [facility] Start: 1935 Sex Assigned At Female F [facility] Tobacco smoking status NHIS Tobacco smoking consumption unknown [facility] Sex Female (finding) [facility] Clinical Notes 11-29-2021 to 04-19-2024 MIGDALIA Morgan - 04/19/2024 12:30 PM MIGDALIA Tomas - 02/15/2024 1:00 PM MIGDALIA Gary - 12/25/2023 10:20 AM Geno Samuel MD - 02/06/2023 11:15 AM EDT Note Date & Type Note Facility 04-19-2024 History of Present illness Narrative Images from the original note were not included. 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 General Exam: alert, oriented to person, place, and time, normal affect, well appearing Unaccompanied A focused exam completed based on patient reported problems, see below: 1. Inflamed seborrheic keratosis Left Wrist - Posterior Inflamed seborrheic keratoses: pink and brown stuck on verrucous scaly papule with surrounding erythema and bloody crust. The patient was informed that symptomatic seborrheic keratoses are benign growths that become inflamed, itchy, tender, traumatized, caught on clothing, or bleed. Symptomatic lesions can be treated with cryotherapy or curretage. Thicker lesions treated with cryotherapy may require more than one treatment. The patient was instructed to notify the office if abnormal redness or tenderness develops at the treatment site. Cryotherapy today, see procedure note. Diagnosis: Inflamed seborrheic keratosis Indication: Inflamed Consent: Verbal consent was obtained and risks were discussed, including, but not limited to risks of scarring, darker or instant potato processor pigmentary changes, recurrence, incomplete removal and infection. Method: Liquid nitrogen was used to treat the lesion(s) with two 5-10 second freeze-thaw cycles Number of lesions treated: 1 Post-procedure instructions: Instructions were given orally and in writing. The office will be contacted if the lesion fails to resolve despite treatment, or if a side effect develops such as abnormal crusting, scabbing, redness or tenderness Cryotherapy, skin lesion - Left Wrist - Posterior 2. 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 The patient was counseled that scars from excisional sites of nonmelanoma skin cancers should be monitored closely for recurrence. The patient was instructed to contact the office for any new, changing, or symptomatic moles. The patient was also instructed to contact the office for any new lesions that develop within or around the previous surgery scar. Next Visit: as scheduled documented in this encounter [facility] 02-15-2024 History of Present illness Narrative Images from the original note were not included. Follow up Diagnosis: Actinic Keratosis Location: left cheek Last visit: 6 weeks ago Symptoms: red spot; painful to touch in certain spots Status: better but not gone Procedure performed: Cryotherapy Date of procedure: 12/25/2023 Number of treatments to date: 1 All pertinent medical history, medications, and allergies were reviewed. General Exam: alert, oriented to person, place, and time, normal affect, well appearing A focused exam completed based on patient reported problems, see below: 1. Neoplasm of unspecified behavior of bone, soft tissue, and skin Left Cheek Scaly erythematous macule Lesion biopsy Type of biopsy: tangential Informed consent: discussed and consent obtained Informed consent comment: The risks and benefits of the biopsy were discussed. Risks include but are not limited to bleeding, infection, scarring, pain, and nerve damage. An opportunity to ask questions prior to the procedure was permitted and all questions were answered. Patient was prepped and draped in usual sterile fashion: area cleansed with alcohol. Anesthesia: the lesion was anesthetized in a standard fashion Anesthetic: 1% lidocaine w/ epinephrine 1-100,000 buffered w/ 8.4% NaHCO3 Instrument used: DermaBlade Hemostasis achieved with: electrodesiccation Outcome: patient tolerated procedure well Outcome comment: The specimen was placed in a prelabeled formalin container to be sent for pathology Post-procedure details: sterile dressing applied and wound care instructions given Post-procedure details comment: Emphasized need to contact clinic for any signs of infection, uncontrollable bleeding, or complications. Dressing type: bandage Additional details: Photo taken Amount of lidocaine used: 0.7 cc Specimen A - Dermatopathology exam Differential Diagnosis: AK vs BCC Check Margins: No Size of lesion: 0.7 x 0.6 cm Next Visit: pending biopsy results documented in this encounter [facility] 12-25-2023 History of Present illness Narrative Images from the original note were not included. Skin Check Location: Patient requests a full body skin examination Dermatologic history: no history of skin cancer, no history of atypical moles; patient's daughter has history of BCC, SCC, and Melanoma Lesion Location: left cheek Duration: months Quality: painful Modifying factors: aggravated by picking Associated symptoms: red, scaly, starting to come back Treatments: about 20 years ago a procedure was done (patient is unsure of what procedure was done and unsure of previous diagnosis) Rash Location: cheeks Duration: months Quality: denies itch, denies burning Associated symptoms: red, blotchy, some pimples Current treatments: none New patient All pertinent medical history, medications, and allergies were reviewed. General Exam: alert , oriented to person, place, and time , normal affect, well appearing Accompanied by daughter Scalp, Examined Right leg Examined Head, Face Examined Left leg Examined Neck Examined Right foot Examined Chest Examined Left foot Examined Back Examined Buttocks Examined Abdomen Examined Digits,nails: Examined Right arm Examined Patient wearing nail bengali, Denies dark streaks on toenails Left arm Examined Lymphatics: Not examined Hands Examined 1. Melanocytic nevus of trunk (8) Abdomen (Lower Torso, Anterior), Chest (Upper Torso, Anterior), Generalized, Left Arm, Left Flank, Right Arm, Right Buttock, Torso - Posterior (Back) Scattered benign appearing, regular brown to light brown melanocytic papules and macules with similar morphology Counseled regarding these benign growths. Rarely, a nevus can develop into malignant melanoma, so any changing nevi should be promptly re-evaluated. 2. Seborrheic keratosis (8) Abdomen (Lower Torso, Anterior), Chest (Upper Torso, Anterior), Generalized, Left Arm, Left Buccal Cheek, Right Arm, Right Buccal Cheek, Torso - Posterior (Back) Stuck on verrucous, variably pigmented papules and plaques. Patient was counseled regarding these benign growths. Removal is normally not necessary, but they may be removed if they are symptomatic or for cosmetic reasons. 3. Actinic keratosis (3) Left Buccal Cheek, Right Ear, Right Lower Leg - Anterior Erythematous scaly papules *photo taken today of left cheek for future reference Patient was counseled regarding these sun-induced growths that can develop into squamous cell carcinoma if left untreated. Discussed treatment with cryotherapy. It was emphasized that any treated lesions that fail to resolve should be re-evaluated. Cryotherapy performed today; see procedure note Plan to reevaluate AK on left cheek in 6-8 weeks and consider biopsy if not improved after treatment. See photo Diagnosis: Actinic keratosis Indication: Precancerous Location: see skin exam Consent: Verbal consent was obtained and risks were discussed, including, but not limited to risks of scarring, darker or instant potato processor pigmentary changes, recurrence, incomplete removal and infection. Method: Liquid nitrogen was used to treat the lesion(s) with two 5-10 second freeze-thaw cycles. Number of lesions treated: 3 Post-procedure instructions: Instructions were given orally and in writing. The office will be contacted if the lesion fails to resolve despite treatment, or if a side effect develops such as abnormal crusting, scabbing, redness or tenderness Cryotherapy, skin lesion - Left Buccal Cheek, Right Ear, Right Lower Leg - Anterior 4. Álvarez angioma Left Zygomatic Area Álvarez-red papule. The patient was informed that angiomas are benign growths on the the skin. No treatment is necessary. 5. Other rosacea Head - Anterior (Face) Mid face erythema with telangiectasias +/- scattered inflammatory papules/pustules. The patient was informed that rosacea a chronic condition that can be controlled but not cured. The appearance of redness and pimples can often be improved with a low dose antibiotic or topical medications. The patient was informed that telangiectasia is common and can be improved with laser treatment Metronidazole cream prescribed today. Instructed on proper use of prescribed medication metroNIDAZOLE (Metrocream) 0.75 % cream - Head - Anterior (Face) Apply thin layer to face, once daily, 30 day supply 6. Family history of melanoma Yearly skin checks recommended Next Visit: 6-8 weeks recheck AK on left cheek; 1 year skin check documented in this encounter [facility] 02-06-2023 Note HNO ID: [id number] Author: Ashwini Teresa RN Service: Radiology Author Type: Registered Nurse Type: Progress Notes Filed: 02/06/2023 10:33 AM Note Text: Radiology Service Progress Note DATE OF SERVICE: February 06, 2023 TIME: 10:22 AM PATIENT WEIGHT: 140LBS PATIENT IDENTITY VERIFICATION COMPLETED USING TWO (2) STANDARD IDENTIFIERS: Name and Date of confirmed by patient verbally and Name and Date of confirmed by identification band. FALL SCREENING: Has the patient had 2 falls in the last year or 1 fall with injury or currently using an Ambulatory Assistive Device (Walker, Cane, Wheelchair, Crutches, etc.)? No PATIENT GENDER DATA: Female. status: : No status: NO. ALLERGIES: Reviewed and unchanged CONTRAST ALLERGY: No EXAM: CT -CONTRAST INDUCED NEPHROPATHY RISK FACTORS: Patient age > 60 years CREATININE: Creatinine (POCT) Date Value Ref Range Status 02/06/2023 0.80 0.7 - 1.4 mg/dL Final eGFR (POCT) Date Value Ref Range Status 02/06/2023 >60 mL/min/1.73 m2 Final P.O.C.T. RESULTS: POC done: Yes, See Lab Tab February 06, 2023 TREATMENT: No Hydration needed. IV SITE: Ambulatory: A peripheral IV was started in the Right antecubital site with a Angio cath: 20 gauge. and A Saline lock was inserted per protocol IV SITE APPEARANCE: Clean,Dry and Intact SIGNATURE: Ashwini Teresa RN PATIENT NAME: Debora Arce DATE: February 06, 2023 TIME: 10:22 AM [facility] 02-06-2023 Note HNO ID: [id number] Author: Shaheed Barry RT(R) Service: Radiology Author Type: Technologist Type: Progress Notes Filed: 02/06/2023 10:55 AM Note Text: Radiology Service Progress Note PATIENT NAME: Debora Arce DATE OF SERVICE: February 06, 2023 TIME: 10:55 AM PATIENT IDENTITY VERIFICATION COMPLETED USING TWO (2) IDENTIFIERS: Name and Date of confirmed by patient verbally and Name and Date of confirmed by identification band. FALL SCREENING: Has the patient had 2 falls in the last year or 1 fall with injury or currently using an Ambulatory Assistive Device (Walker, Cane, Wheelchair, Crutches, etc.)? No PATIENT GENDER DATA: Female. status: : No status: NO. PATIENT RELEVANT IMPLANT DATA REVIEWED: Yes RADIOLOGY DEPARTMENT: CT; Exam(s) Completed: Abdomen/Pelvis PERIPHERAL IV DATA: Site assessment: Clean,Dry and Intact, Site disposition Discontinued SIGNED BY: RT Monse(R) February 06, 2023 10:55 AM [facility] 02-06-2023 History and physical note Images from the original note were not included. Heart , Vascular and Thoracic [place] DEPARTMENT OF VASCULAR SURGERY OUTPATIENT VISIT DATE February 06, 2023 OUTPATIENT VISIT TYPE CONSULTATION SERVICE DATE: 02/06/2023 SERVICE TIME: 11:15 AM PRIMARY CARE PHYSICIAN: Dee Dee Osorio MD REFERRING PROVIDER: Self-referred CHIEF COMPLAINT: Splenic artery aneurysm HISTORY OF PRESENT ILLNESS: Vascular consultation at the request of Dr. Sonia Duff. A copy of this consultation note will be provided to the requesting physician by way of shared Medical record or letter to requesting physician via [place] mail. Ms. Arce is a 87 year old female who is seen today for known splenic artery aneurysms. Patient is doing well and has no current complaints. Patient has had multiple prior CT scans with no evidence of any growth of her splenic artery aneurysms. She denies any abdominal pain, nausea, vomiting, diarrhea, or constipation. PAST MEDICAL HISTORY Diagnosis Date Aneurysm of renal artery (HCC) Cervical spondylosis Hypothyroidism Splenic artery aneurysm (HCC) PAST SURGICAL HISTORY Procedure Laterality Date BREAST BIOPSY CARPAL TUNNEL RIGHT WRIST PAST SURGICAL HISTORY OF R wrist ganglion cyst removal VAGINAL HYSTERECTOMY UTERUS 250 GM/< 1983 Hysterectomy, vaginal SOCIAL HISTORY: Social History Tobacco Use Smoking status: Never Smokeless tobacco: Never Substance Use Topics Alcohol use: No Drug use: No FAMILY HISTORY Problem Relation Age of Onset Heart Mother Heart Brother Heart Son Stroke Father Lipids Brother MEDICATIONS: erythromycin (ROMYCIN) 5 mg/gram (0.5 %) ophthalmic ointment Use in both eyes daily at bedtime. losartan (COZAAR) 25 mg tablet Take 1 tablet by mouth every afternoon. Levothyroxine 50 mcg cap Take 50 mcg by mouth once daily. iv contrast (will be provided with radiology [...] in the CT contrast administration guidelines link. ALLERGIES: ALLERGIES Allergen Reactions Aspirin [Salicylate* GI Upset REVIEW OF SYSTEM: Constitutional: No weight loss, malaise or fevers. HEENT: Negative for frequent or significant headaches, No changes in hearing or vision, no nose bleeds or other nasal problems Respiratory: Negative for cough, wheezing, or shortness of breath Cardiovascular: Negative for chest pain, leg swelling or palpitations, claudication Gatrointestinal: Negative for abdominal discomfort, blood in stools or black stools or change in bowel habits Genitourinary: No history of dysuria, frequency, or incontinence and No difficulty urination, nocturia >1 times per night or hematuria Musculoskeletal: Positive for generalized aches Endocrine: Negative for cold or heat intolerance, polyuria, polydipsia and goiter Hematology/Lymphatic: Negative for prolonged bleeding, bruising easily or swollen nodes Neurologic: No history or headaches, syncope, paralysis, seizures or tremors Integumentary: Negative for lesions, rash, and itching. PHYSICAL EXAM: VITALS: BP 145/73 Pulse 72 Temp (Src) 97.3 (Oral) Resp 16 Ht 5' .5 (1.54m) Wt 140 lb 8 oz (63.7kg) SpO2 99% BMI 26.98 kg/(m^2). General: Alert and oriented, No acute distress, Healthy appearance Integumentary: Normal color, no rash, no lesions. HEENT: EOM, pupils equal, round and reactive. Cardiovascular: Normal S1 & S2, no rubs, murmurs or gallops. No JVD., Pulse regular. Lungs: Normal breath sounds, no wheezes or crackles. Abdomen: Soft, non-tender, no rigidity. Extremities: No deformity, no edema or tenderness, no joint swelling or clubbing. Neurological: Normal cognition and motor skills. Vascular: Posterior Tibial Right: Normal - Left: Normal Dorsalis Pedal Right: Normal - Left: Normal Diagnostic tests reviewed for today's visit: Most recent imaging with CTA with two splenic aneurysms and no interval growth and size <2 cm IMPRESSION: Ms. Arce is a 87 year old female with known splenic artery aneurysms. PLAN and RECOMMENDATIONS: No urgent indication for any aneurysm repair Stability of the aneurysms for several years Extensive discussion with patient about surveillance and a decision was made based on size and age to discontinue any further imaging surveillance Continue optimal medical therapy Follow-up as needed SIGNATURE: Geno Griffith MD PATIENT NAME: Debora Arce DATE: February 06, 2023 TIME: 11:15 AM documented in this encounter [facility] 02-06-2023 History of Present illness Narrative Radiology Service Progress Note DATE OF SERVICE: February 06, 2023 TIME: 10:22 AM PATIENT WEIGHT: 140LBS PATIENT IDENTITY VERIFICATION COMPLETED USING TWO (2) STANDARD IDENTIFIERS: Name and Date of confirmed by patient verbally and Name and Date of confirmed by identification band. FALL SCREENING: Has the patient had 2 falls in the last year or 1 fall with injury or currently using an Ambulatory Assistive Device (Walker, Cane, Wheelchair, Crutches, etc.)? No PATIENT GENDER DATA: Female. status: : No status: NO. ALLERGIES: Reviewed and unchanged CONTRAST ALLERGY: No EXAM: CT -CONTRAST INDUCED NEPHROPATHY RISK FACTORS: Patient age > 60 years CREATININE: Creatinine (POCT) Date Value Ref Range Status 02/06/2023 0.80 0.7 - 1.4 mg/dL Final eGFR (POCT) Date Value Ref Range Status 02/06/2023 >60 mL/min/1.73 m2 Final P.O.C.T. RESULTS: POC done: Yes, See Lab Tab February 06, 2023 TREATMENT: No Hydration needed. IV SITE: Ambulatory: A peripheral IV was started in the Right antecubital site with a Angio cath: 20 gauge. and A Saline lock was inserted per protocol IV SITE APPEARANCE: Clean,Dry and Intact SIGNATURE: Ashwini Teresa RN PATIENT NAME: Debora Arce DATE: February 06, 2023 TIME: 10:22 AM Radiology Service Progress Note PATIENT NAME: Debora Arce DATE OF SERVICE: February 06, 2023 TIME: 10:55 AM PATIENT IDENTITY VERIFICATION COMPLETED USING TWO (2) IDENTIFIERS: Name and Date of confirmed by patient verbally and Name and Date of confirmed by identification band. FALL SCREENING: Has the patient had 2 falls in the last year or 1 fall with injury or currently using an Ambulatory Assistive Device (Walker, Cane, Wheelchair, Crutches, etc.)? No PATIENT GENDER DATA: Female. status: : No status: NO. PATIENT RELEVANT IMPLANT DATA REVIEWED: Yes RADIOLOGY DEPARTMENT: CT; Exam(s) Completed: Abdomen/Pelvis PERIPHERAL IV DATA: Site assessment: Clean,Dry and Intact, Site disposition Discontinued SIGNED BY: RT Monse(R) February 06, 2023 10:55 AM documented in this encounter [facility] 12-08-2022 Evaluation note Encounter Date Diagnosis Assessment Notes Dec, Medicare annual wellness visit, subsequent (ICD-10 - Z00.00) Personalized health advice was given to the beneficiary including a written plan for screenings discussed and provided. Advanced care planning reviewed and/or information given as requested. Additional counseling was provided here today in regards to, [ ]. The above visit was performed by [ ], under direct supervision of [ ]. Document reviewed and amended by provider signed below. Dec, Ganglion cyst of finger of right hand (ICD-10 - M67.441) Pt requests referral to the new ortho in [place] Dec, Essential (primary) hypertension (ICD-10 - I10) Blood pressure remains well controlled at this time. Denies cardiac symptoms. Shows no signs or symptoms or poor control. Patient to continue with above medication and we will continue to monitor. Advised to pay attention to body and symptoms. Any developing patterns. Stay well hydrated. Dec, Other specified hypothyroidism (ICD-10 - E03.8) Labs stable. Continue present dose. Copy of labs given to patient. [facility] Other 12-01-2022 NoteCONSULTATION CONSULTATION DATE: 04/03/2022 This is a very pleasant, active and vital 86-year-old female who returns to the clinic for three months in follow-up. Her last procedure was in December which was a lumbar epidural steroid injection along with an in-office gluteal trigger point and right greater trochanteric bursa injection. The patient overall states she feels very well. She rates her pain as zero. She does have some arthritic stiffness that she experiences in the morning and after sitting in the recliner for a long period of time. She does take Tylenol occasionally and feels this works for her. She does exercise approximately 2 hours a day at the gym. She finds exercise is her hobby. She uses the elliptical, treadmill and lifts light weights. She is very conscientious about her gait as she wants to prevent falls. REVIEW OF SYSTEMS, PAST MEDICAL HISTORY, ALLERGIES AND IMAGES: Have been reviewed and noted in the chart. PHYSICAL EXAM: VITAL SIGNS: Blood pressure 151/82, heart rate is 73, temperature is 96.9. Height is 5'3 , weighs 67.4 kg. GENERAL APPEARANCE: Pleasant, appropriate and in no acute distress. FOCUSED EXAM: BACK: Range of motion is functional in lateral rotation, flexion and extension. Paravertebral muscles are non-spasmodic. Mild spinoaxial pain upon decompression along L4-5 bilaterally. Pain is non-radiating. Rupinder's point is nontender with negative Kumar's and compression test. MUSCULOSKELETAL: Motor is intact, 4 out of 5 bilaterally. Good muscle tone for her age. She walks with an unassisted and steady gait. NEUROLOGICAL: Radicular sensory is intact. The patient is cognitively intact. Bilateral patellar Achilles reflexes are +1. DIAGNOSIS: Lumbar radiculitis, lumbar degenerative disease, lumbar spondylosis. PLAN: Overall the patient is doing quite well. I recommended alternating her Tylenol with ibuprofen to help with some osteoarthritic inflammatory pain. We will follow-up with the patient on a p.r.n. basis. The patient is in agreement with this. She is compliant with a multivitamin regimen and high protein intake.[facility] [id number] NoteCONSULTATION CONSULTATION DATE: 01/02/2022 This is a very pleasant 86-year-old female who returns to the clinic status post lumbar epidural steroid injection and left gluteal injection, completed on 12/17/2021. The patient is reporting 90% relief to her left side. She is a very active individual and uses an elliptical and treadmill daily. She is complaining today of isolated right hip pain but denies any radicular pain. She feels this is epidural. The radiating pain down her left leg has diminished. 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 She denies any vasomotor weakness. REVIEW OF SYSTEMS, PAST MEDICAL HISTORY, ALLERGIES AND IMAGES: Have been reviewed and noted in the chart. PHYSICAL EXAM: VITAL SIGNS: Blood pressure 152/76, heart rate is 74, temperature is 97.8. Height is 5'3 , weighs 66.4 kg. . GENERAL APPEARANCE: Pleasant, appropriate and in no acute distress. FOCUSED EXAM: BACK: Range of motion is functional. Moderate rotation and flexion-extension. Paravertebral muscles are non-spasmodic. Rupinder's point is nontender bilaterally. Kumar's and compression tests are negative. MUSCULOSKELETAL: Motor is intact, 4 out of 5 bilaterally. Good muscle tone. Right hip pain is reproduced upon compression of the right greater trochanteric bursa. Fullness is felt indicative of bursitis. Right lower extremity and right hip with good range of motion, adduction and abduction. NEUROLOGICAL: Radicular sensory is intact. Negative polyneuropathy DIAGNOSIS: Right hip pain, right greater trochanteric bursitis, lumbar radiculitis, lumbar degenerative disk disease, lumbar spondylosis. PLAN: The patient received a right greater trochanteric bursa injection in the office today which she does consent to. She was encouraged to mix Neri's VapoRub with 1% Voltaren gel and apply to her right hip daily. Heat was encouraged as well. The patient agrees with this plan of care and will follow-up in the office in three months' time unless otherwise indicated.[facility] [id number] NoteCONSULTATION PROCEDURE DATE: 01/02/2022 PRE AND POSTOPERATIVE DIAGNOSIS: Right greater trochanteric bursitis. PROCEDURE: Right greater trochanteric bursa injection. Subsequent to obtaining informed consent, the patient was placed in the upright standing forward flexion position. Alcohol prep was used to sterilize the site. 25-gauge needle with 0.125% Marcaine and 40 mg of Kenalog was placed inside the bursa. Negative heme. Medication was injected in a slow and steady fashion. The patient tolerated the procedure well with no overt complications. She will be followed up in the office.[facility] [id number] Note CONSULTATION CONSULTATION DATE: 12/03/2021 CHIEF COMPLAINT: Low back pain, left lower extremity pain, right hip pain. HISTORY OF PRESENT ILLNESS: This is a very pleasant, 86-year-old female who is referred to us by Dr. eDe Dee Osorio. The patient is a very vital individual. She exercises on a regular basis, is a very active individual. The patient in her right hip feels like needles and pins. On the left side, the patient states the pain travels into her foot. Activities such as sitting mitigates the pain; however, driving the car for any length of time aggravates the pain, as does sitting on a bathroom stool. Transitioning, laying down, pushing, pulling, bending, climbing, going down the steps aggravates her pain. The patient has an x-ray of the lumbar spine which shows auto-fusion at the level of L5-S1 and degenerative changes above. Results are noted on to the chart. The patient does bicycle exercises three miles, treadmill one mile five days a week. The patient's PAST MEDICAL HISTORY / SURGICAL HISTORY / REVIEW OF SYSTEMS are noted on to the chart, along with the MEDICATION LIST / ALLERGIES and RADIOLOGICAL IMAGES. PHYSICAL EXAMINATION: GENERAL APPEARANCE: Upon physical examination, this is a pleasant, cooperative female, who looks younger than stated age. VITAL SIGNS: 179/84 with a heart rate of 77. At a height of 5'3 , the patient weighs 147 pounds. HEAD: Atraumatic, normocephalic. The patient has some hyperemia on the right hand side. This appears to be prodromal to shingles. NECK: Crepitus is noted. HEART: No orthopnea is present. LUNGS: Non-labored breathing. ABDOMEN: Soft, non-distended. BACK: Slight loss of lumbar lordosis is noted. EXTREMITIES: Global atrophy of the lower extremities present bilaterally. Loss of gluteal muscle bulk, muscle density is present. The patient has slight weakness and an antalgic gait, which the patient focuses on to not have a pelvic drift with left leg weight bearing. MUSCULOSKELETAL: Intact in the lower extremities. NEUROLOGICALLY: Hypoesthesia is present along the L5-S1 distribution on the left hand side. PSYCHIATRICALLY: Affect is appropriate. IMPRESSION: Current working diagnosis on the patient is lumbar degenerative disc disease, lumbar spondylosis, lumbar radiculitis and radiculopathy, left gluteal spasm, sarcopenia. PLAN: The patient is to apply a heat rub to her low back. With regards to the gluteal pain, we will look to perform a trigger point injection. We will schedule the patient for a lumbar epidural steroid injection at the level of L5- S1. The patient has not had her Shingrix vaccine. Given the patient's age and the asymmetry in the hyperemia on her face, my recommendation would be for the patient to have the Shingrix vaccine. She would be at a high risk wince the hyperemia is in the distribution of V1, V2 and V3.[facility] 12-03-2021 NoteAugust 2021 Dee Dee Osorio M.D. [facility]5 [facility], [address] [place] [address] Fax # Dear Dee Dee: Regarding our patient, Ms. Debora Arce, an incidental finding on her physical examination was a hyperemia on the right side of her face, consistent which I have seen in the past, which eventually develops into either a tick and/or shingles episode. This seems more to be a prodrome to the shingles in and of themselves. The patient has not been vaccinated with Shingrix. I tried to educate her with regards to the importance of this, especially given the location of his hyperemia, which would be on the right hand side, at the level of V1, V2 and V3. The patient is resistant; however, we tried to stress the importance. Regards, Ady Lawrence M.D. /Carlyn [facility] [id number] NoteCONSULTATION PROCEDURE DATE: 12/03/2021 PREOPERATIVE DIAGNOSIS: Left gluteal spasm. POSTOPERATIVE DIAGNOSIS: Left gluteal spasm. PROCEDURE: Left gluteal trigger point injection; Subsequent to obtaining informed consent, the patient was placed in the prone position. Alcohol prep was used to sterilize the site. A 25 gauge needle was advanced and it comes to rest along the gluteal trigger point. Negative aspiration. Marcaine 0.125% along with Kenalog 10 mg are injected to the site. Negative heme. The patient tolerates the procedure well, without any overt complication. Will be followed up in the office. CC: Dee Dee Osorio M.D.[facility] [id number] NotePROCEDURE: XR HIPS JOANN 5V W PELVIS HISTORY: Pain in right hip joint ; acute bilateral hip pain without injury COMPARISON: CT abdomen pelvis 12/17/2019 FINDINGS: BONES:No fracture, acute abnormality, or significant arthropathy of the hip joints.. 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 EFFUSION:None visible. OTHER: Multilevel marked degenerative disc disease of lumbar spine. IMPRESSION: 1. No acute abnormality or significant degenerative change of the hip joints. 2. Marked degenerative disc disease of lumbar spine. 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 documented in this encounter [facility] note* Diagnosis Splenic artery aneurysm (HCC) Aneurysm of splenic artery [facility] [place] [facility]* Diagnosis Splenic artery aneurysm (HCC) Aneurysm of splenic artery [facility] [place] [facility]* Diagnosis Onset Date Resolution Status Essential (primary) hypertension acute Other specified hypothyroidism acute [facility] Work Phone: Evaluation note* Diagnosis Neoplasm of unspecified behavior of bone, soft tissue, and skin- Primary documented in this encounter [facility]* Diagnosis 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 Inflamed seborrheic keratosis documented in this encounter [facility] note* Diagnosis Melanocytic nevus of trunk- Primary Benign neoplasm of skin of trunk, except scrotum Seborrheic keratosis Actinic keratosis Álvarez angioma Other rosacea Family history of melanoma Family history of other specified malignant neoplasm documented in this encounter [facility]* Diagnosis Onset Date Resolution Status Admit Date Essential (primary) hypertension acu te December 23, 2024 8:51am Medicare annual wellness vis it, subsequent acute December 23 8:51am Other specified hypothyroidism acute December 23, 2024 8:51am [facility] Work Phone: History general Narrative - Reported* Type Description Date Medical History Essential (primary) hypertension Medical History Other specified hypothyroidism Medical History Lumbar pain Medical History Cervical pain Surgical History HYSTERECTOMY Surgical History LEFT BREAST BOIPSY Hospitalization History SEE SURGICAL HX [facility] [employer] Other Reason for referral (narrative)No reason for referral information availableGood [facility] Work Phone: Summary Purpose Family History Relationship Condition Age at Onset Recorded Date/T channing brother Unknown Heart disease Unknown father History of stroke Unknown Unknown mother Heart disease Unknown Advance Directives Advance Directive Response Recorded Date/ Time Advance Directives No December 10 8:51am Reason for Referral Reason New ortho in [facility]. Has lump on R 4th finger MIP. thanks Diagnosis 1 Ganglion cyst of fin conrad of right hand (M67.441) Referral Organization [facility] rigoberto Referring Provider First Name Dee Dee Referring Provider Last Name Jo Referring Provider Specialty [facility] cine Referred Organization [facility] Referred Address [address] [place], [place],[address] Referred Provider Specialty Orthopaedic Surgery Referral Priority Routine Clinical Notes Dr. Justin Mendoza Specialty Diagnoses / Procedures Referred By Betsey almanzar Referred To Contact CT IMAGING Diagnoses Splenic artery aneurysm (HCC) Vasculopathy Procedures CTA ABD/PEL WO/W IVCON CT ANGIO ABD&PLVIS CNTRST MTRL W/WO CNTRST Sonia Novoa MD [id number] [facility] [place] [address] Referral ID Status Reason Start Date Expiration Date Visits Requested Visits Authorized [id number] Authorized Auto-Generat ed Referral 12/24/2022 01/23/2024 1 1 Specialty Diagnoses / Procedures Referred By Betsey almanzar Referred To Contact CT IMAGING Diagnoses Splenic artery aneurysm (HCC) Procedures CTA ABD/PEL WO/W IVCON CT ANGIO ABD&PLVIS CNTRST MTRL W/WO CNTRST Geno Parish MD [address] [place] [address] [address] [facility] [place] [address] Referral ID Status Reason Start Date Expiration Date Visits Requested Visits Authorized [id number] Authorized Auto-Generat ed Referral 01/01/2023 01/31/2024 1 1 Chief Complaint and Reason for Visit Chief Complaint wellness Reason for Visit Essential (primary) hypertension Other specified hypothyroidism Chief Complaint Admit Date wellness December 23, 2024 8: 51am Reason for Visit Admit Date Essential (primary) hypertension December 23, 2024 8:51am Medicare annual wellness visit, subseque nt December 23, 2024 8:51am Other specified hypothyroidism December 232024 8:51am Additional Source Comments INFORMATION SOURCE (unrecogn ized section and content) DATE CREATED AUTHOR 04/09/2022 [facility] DATE CREATED AUTHOR AUTHOR'S ORGANIZ ATION 02/09/2023 [facility] DATE CREATED AUTHOR AUTHOR'S ORGANIZ ATION 08/21/2023 [facility] DATE CREATED AUTHOR AUTHOR'S ORGANIZ ATION 04/22/2024 [facility] EPIC REASON FOR VISIT (unrecogniz ed section and content) Reason Comments Consult Reason Comments Radiology CT Specialty Diagnoses / Procedures Referred By Contac t Referred To Contact CT IMAGING Diagnoses Splenic artery aneurysm (HCC) Procedures CTA ABD/PEL WO/W IVCON CT ANGIO ABD&PLVIS CNTRST MTRL W/WO CNTRST Geno Parish MD [address] [place] [address] [place] [id number] Referral ID Status Reason Start Date Expiration Date V isits Requested Visits Authorized [id number] Closed Auto-Generate d Referral 01/01/2023 01/31/2024 1 1 Reason Comments Follow-up Reason Comments Suspicious Skin Lesion Source Comments (unrecognize d section and content) In the event this informatio n is protected by the Federal Confidentiality of Alcohol and Drug Abuse Patient Records regulations: The Federal rules restrict any use of the information to criminally investigate or prosecute any alcohol or drug abuse patient.[facility] CampusIn the event this information is protected by the Federal Confidentiality of Alcohol and Drug Abuse Patient Records regulations: The Federal rules restrict any use of the information to criminally investigate or prosecute any alcohol or drug abuse patient.[facility] CampusIn the event this information is protected by the Federal Confidentiality of Alcohol and Drug Abuse Patient Records regulations: The Federal rules restrict any use of the information to criminally investigate or prosecute any alcohol or drug abuse patient.[facility] CampusIn the event this information is protected by the Federal Confidentiality of Alcohol and Drug Abuse Patient Records regulations: The Federal rules restrict any use of the information to criminally investigate or prosecute any alcohol or drug abuse patient.[facility] Care Teams (unrecognized sec tion and content) 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 [place] [id number] PCP - General Family Medicine 04/05/14 Team Status: Active Member Role Status Dates Dee Dee Osorio MD Primary Care Provider Active Team Status: Inactive Member Role Status Dates Dee Dee Osorio MD Primary Care Provide r, Attending Provider Active Start: December 11, 2023 End: December 11, 2023 Team Status: Inactive Member Role Status Dates Dee Dee Osorio MD Primary Care Provider Active Start: December 23, 2024 End: December 23, 2024 Dee Dee Osorio MD Attending Provider Active St art: December 23, 2024 End: December 23, 2024 Goals (unrecognized section and content) Goals may be documented in a n alternate section FOR RECORDS PERTAINING TO PATIENTS WHO ARE OR HAVE BEEN ENROLLED IN A CHEMICAL DEPENDENCY/SUBSTANCEABUSE PROGRAM, SOME INFORMATION MAY BE OMITTED. This clinical summary was aggregated from multiple sources. Caution should be exercised in using it in the provision of clinical care. This summary normalizes information from multiple sources, and as a consequence, information in this document may materially change the coding, format and clinical context of patient data. In addition, data may be omitted in some cases. CLINICAL DECISIONS SHOULD BE BASED ON THE PRIMARY CLINICAL RECORDS. [employer] [facility]. provides no warranty or guarantee of the accuracy or completeness of information in this document.
[2024-12-23 10:47] LABS: Anion Gap 14.5; Blood Urea Nitrogen 16.0 mg/dL (7.0-18.0); Calcium 9.0 mg/dL (8.5-10.1); Carbon Dioxide 26.5 mmol/L (21.0-32.0); Chloride 103 mmol/L (98-107); Estimated GFR (African America >60 (>=60 mL/min/1.73m^2); Estimated GFR (Non-African Ame >60 (>=60 mL/min/1.73m^2); Glucose 104 mg/dL (74-106); Hematocrit 46.4 % (36.0-48.0); Hemoglobin 15.4 g/dL (12.0-16.0); Immature Granulocytes Abs Auto 0.02 10^3/uL (0.00-0.03); Immature Granulocytes Pct Auto 0.2 % (0.0-0.5); Lymphocytes Absolute Auto 1.9 10^3/uL (1.2-3.8); Mean Corpuscular HGB Conc 33.2 g/dL (29.9-35.2); Mean Corpuscular Hemoglobin 29.3 pg (26.7-34.0); Mean Corpuscular Volume 88.4 fL (81.0-99.0); Platelet Count 232 10^3/uL (150-450); Potassium 4.0 mmol/L (3.5-5.1); Red Blood Count 5.25 10^6/uL (4.20-5.40); Sodium 140 mmol/L (136-145); White Blood Count 8.3 10^3/uL (4.0-11.0)
[2024-12-23 10:48] LABS: Alanine Aminotransferase 24 U/L (14-59); Albumin Globulin Ratio 0.9; Albumin Level 3.8 g/dL (3.4-5.0); Alkaline Phosphatase 94 U/L (46-116); Aspartate Amino Transferase 25 U/L (15-37); Cholesterol 219 mg/dL (<=200); Globulin 4.1 g/dL; HDL Cholesterol 71 mg/dL (40-60); Thyroid Stimulating Hormone 1.070 uIU/mL (0.358-3.740); Total Protein 7.9 g/dL (6.4-8.2); Triglycerides 94 mg/dL (<=150); VLDL CHOLESTEROL 18.8 mg/dL
[2024-12-23 10:54] LABS: Microalbum Creatinine Ratio Ur 18.2 mg/g (0.0-29.9)
== END 2024-12-23 09:31 | disposition home or self-care (01) ==
PROVIDERS: PCP Family Medicine; Visit Provider Family Medicine
DX: Z00.00 Encounter for general adult medical examination without abnormal findings (principal); E03.8 Other specified hypothyroidism; I10 Essential (primary) hypertension
CPT/HCPCS: 36415; 80053; 80061; 82043; 82570; 84439; 84443; 85025